=== PATIENT | female | born 1960 | race Caucasian/White ===

== ENCOUNTER 2021-10-12 20:31 | Emergency (ER) | payer OTHER ==
[2021-10-12 20:53] VITALS: RESP 18; TEMP 97.9
[2021-10-12] MEDS ORDERED: LORazepam 2 MG/ML INJ IV STA (21:10)
[2021-10-12] MEDS ORDERED: oxyCODONE-APAP 10-325MG 1 EACH TAB PO STA (21:10)
[2021-10-12 21:43] LABS: Appearance,Urine Clear (Clear); Basophils # (A) 0.1 k/uL (0-0.2); Basophils % (A) 1 %; Bilirubin,Urine Negative (Negative); Blood,Urine Negative (Negative); Color,Urine Yellow; Eosinophils # (A) 0.1 k/uL (0-0.7); Eosinophils % (A) 1 %; Glucose,Urine (UA) Negative (Negative); HCT 41.7 % (34.0-46.0); HGB 13.3 gm/dL (11.4-16.0); Ketones,Urine Trace (Negative); Leukocyte Esterase,Urine Negative (Negative); Lymphocytes # (A) 1.5 k/uL (1.0-4.8); Lymphocytes % (A) 14 %; MCH 28.8 pg (25.0-35.0); MCV 90.1 fL (80.0-100.0); Mean Platelet Volume 9.9; Monocytes # (A) 0.6 k/uL (0-1.0); Monocytes % (A) 6 %; Neutrophils # (A) 7.9 k/uL (1.3-7.7); Neutrophils % (A) 77 %; Nitrite,Urine Negative (Negative); Platelet Count 193 k/uL (150-450); Protein,Urine Negative (Negative); RBC 4.63 m/uL (3.80-5.40); RDW 15.3 % (11.5-15.5); Specific Gravity,Urine 1.008 (1.001-1.035); Urobilinogen,Urine <2.0 mg/dL (<2.0); WBC 10.3 k/uL (3.8-10.6)
[2021-10-12 21:54] LABS: ALT 12 U/L (4-34); AST 21 U/L (14-36); African American GFR (CKD) >90 (>60 ml/min/1.73 sqM); Albumin 3.8 g/dL (3.5-5.0); Alkaline Phosphatase 86 U/L (38-126); Anion Gap 9 mmol/L; Blood Urea Nitrogen 7 mg/dL (7-17); Carbon Dioxide 19 mmol/L (22-30); Chloride 110 mmol/L (98-107); Glucose 95 mg/dL (74-99); Non-African American GFR(CKD) >90 (>60 ml/min/1.73 sqM); Potassium 3.4 mmol/L (3.5-5.1); Sodium 138 mmol/L (137-145); Total Bilirubin 0.5 mg/dL (0.2-1.3)
--- NOTE | 2021-10-12 23:04 | ED ---
Recheck HPI - General Chief Complaint: Recheck/Abnormal Lab/Rx Stated Complaint: Hypertension Time Seen by Provider: 10/12/21 20:35 Source: patient, EMS Mode of arrival: EMS Limitations: no limitations - History of Present Illness Initial Comments: 61-year-old female patient presented to the emergency department today for evaluation of elevated blood pressure. States that she often checks her blood pressure at home. States her blood pressure is usually all over the place. She takes 3 different blood pressure medications including lisinopril, hydralazine, and carvedilol. States she has been taking her blood pressure medications as directed. States today her blood pressure was over 200 systolic multiple times. States she did take metoprolol from a friend. States that her blood pressure remained high so she called ambulance to bring her in. She does report headache at this time states headaches are not unusual for her. Denies any chest pain or shortness of breath. Denies numbness, tingling, weakness to her extremities. She does note that she is out of her Percocet and Xanax due to not currently having her primary care physician. She hasn't had these pills in the last 4-5 days. - Related Data Home Medications Medication Instructions Recorded Confirmed ALPRAZolam [Xanax] 0.5 mg PO BID PRN 10/12/21 10/12/21 Albuterol Sulfate [Proair Hfa] 1 - 2 puff INHALATION RT-Q4H PRN 10/12/21 10/12/21 Atorvastatin Calcium [Lipitor] 40 mg PO HS 10/12/21 10/12/21 Carvedilol [Coreg] 12.5 mg PO BID 10/12/21 10/12/21 Mometasone/Formoterol [Dulera 200 2 puff PO RT-BID 10/12/21 10/12/21 Mcg-5 Mcg Inhaler] buPROPion [Wellbutrin] 75 mg PO DAILY 10/12/21 10/12/21 hydrALAZINE HCL 50 mg PO TID 10/12/21 10/12/21 lisinopriL [Zestril] 20 mg PO BID 10/12/21 10/12/21 oxyCODONE-APAP 10-325MG [Percocet 1 tab PO Q6H 10/12/21 10/12/21 10-325 mg] traZODone HCL [Desyrel] 100 mg PO HS 10/12/21 10/12/21 Previous Rx's Medication Instructions Recorded ALPRAZolam [Xanax] 0.5 mg PO BID PRN #6 tablet 10/12/21 oxyCODONE HCL/ACETAMINOPHEN 1 tab PO Q6HR PRN #12 tab 10/12/21 [Percocet 10-325 mg] Allergies Allergy/AdvReac Type Severity Reaction Status Date / Time No Known Allergies Allergy Verified 10/12/21 21:36 Review of Systems ROS Statement: Those systems with pertinent positive or pertinent negative responses have been documented in the HPI. ROS Other: All systems not noted in ROS Statement are negative. Past Medical History Past Medical History: Hypertension Additional Past Medical History / Comment(s): Abcess lung 2014, colitis Past Surgical History: No Surgical Hx Reported Past Psychological History: Anxiety, Depression Smoking Status: Current every day smoker Past Alcohol Use History: None Reported Past Drug Use History: None Reported General Exam Limitations: no limitations General appearance: alert, in no apparent distress, other (This is a well- developed, well-nourished adult female in no acute distress.) ENT exam: Present: normal exam, normal oropharynx, mucous membranes moist Respiratory exam: Present: normal lung sounds bilaterally. Absent: respiratory distress, wheezes, rales, rhonchi, stridor Cardiovascular Exam: Present: regular rate, normal rhythm, normal heart sounds. Absent: systolic murmur, diastolic murmur, rubs, gallop, clicks GI/Abdominal exam: Present: soft, normal bowel sounds. Absent: distended, tenderness, guarding, rebound, rigid Neurological exam: Present: alert, oriented X3, CN II-XII intact Psychiatric exam: Present: normal affect, normal mood Skin exam: Present: warm, dry, intact, normal color. Absent: rash Course Vital Signs 10/12/21 10/12/21 10/12/21 20:46 21:36 22:47 Temperature 97.9 F Pulse Rate 59 L 66 64 Respiratory 18 18 18 Rate Blood Pressure 180/84 181/81 169/59 O2 Sat by Pulse 98 98 96 Oximetry 10/12/21 23:10 Temperature 97.9 F Pulse Rate 65 Respiratory 18 Rate Blood Pressure 125/71 O2 Sat by Pulse 96 Oximetry Medical Decision Making - Medical Decision Making 61-year-old female patient presented to the emergency department today for evaluation of elevated blood pressure. Physical examination is unremarkable. She is neurologically intact with no focal deficits. Blood pressures on arrival were elevated with systolic in 180s. Labs reviewed and were unremarkable. She was given a dose of Percocet and Ativan here in the department. Repeat blood pressures were much improved. She'll be discharged home with a short prescription of each of these medications until she is able to establish with a primary care physician. She was informed that she would not be able to receive these medications here in the future. She is instructed to continue her blood pressure medications and avoid taking medications or other people. She is instructed to follow up with cardiology for further evaluation of her abnormal blood pressures. Return parameters were discussed in detail. She verbalizes understanding and agrees with this plan. My attending is Dr. Stallings. - Lab Data Result diagrams: 10/12/21 21:36 10/12/21 21:36 Lab Results 10/12/21 10/12/21 10/12/21 Range/Units 21:36 21:36 21:36 WBC 10.3 (3.8-10.6) k/uL RBC 4.63 (3.80-5.40) m/uL Hgb 13.3 (11.4-16.0) gm/dL Hct 41.7 (34.0-46.0) % MCV 90.1 (80.0-100.0) fL MCH 28.8 (25.0-35.0) pg MCHC 32.0 (31.0-37.0) g/dL RDW 15.3 (11.5-15.5) % Plt Count 193 (150-450) k/uL MPV 9.9 Neutrophils % 77 % Lymphocytes % 14 % Monocytes % 6 % Eosinophils % 1 % Basophils % 1 % Neutrophils # 7.9 H (1.3-7.7) k/uL Lymphocytes # 1.5 (1.0-4.8) k/uL Monocytes # 0.6 (0-1.0) k/uL Eosinophils # 0.1 (0-0.7) k/uL Basophils # 0.1 (0-0.2) k/uL Sodium 138 (137-145) mmol/L Potassium 3.4 L (3.5-5.1) mmol/L Chloride 110 H (98-107) mmol/L Carbon Dioxide 19 L (22-30) mmol/L Anion Gap 9 mmol/L BUN 7 (7-17) mg/dL Creatinine 0.61 (0.52-1.04) mg/dL Est GFR (CKD-EPI)AfAm >90 (>60 ml/min/1.73 sqM) Est GFR (CKD-EPI)NonAf >90 (>60 ml/min/1.73 sqM) Glucose 95 (74-99) mg/dL Calcium 9.0 (8.4-10.2) mg/dL Total Bilirubin 0.5 (0.2-1.3) mg/dL AST 21 (14-36) U/L ALT 12 (4-34) U/L Alkaline Phosphatase 86 (38-126) U/L Total Protein 7.0 (6.3-8.2) g/dL Albumin 3.8 (3.5-5.0) g/dL Urine Color Yellow Urine Appearance Clear (Clear) Urine pH 7.0 (5.0-8.0) Ur Specific [place] 1.008 (1.001-1.035) Urine Protein Negative (Negative) Urine Glucose (UA) Negative (Negative) Urine Ketones Trace H (Negative) Urine Blood Negative (Negative) Urine Nitrite Negative (Negative) Urine Bilirubin Negative (Negative) Urine Urobilinogen <2.0 (<2.0) mg/dL Ur Leukocyte Esterase Negative (Negative) Disposition Clinical Impression: Hypertension Disposition: HOME SELF-CARE Condition: Good Instructions (If sedation given, give patient instructions): Hypertension (ED) Additional Instructions: Take medication sparingly as needed for severe symptoms. Follow up with cardiology for further evaluation of your blood pressure as soon as possible. Establish with a primary care physician as soon as possible. Return for any new, worsening, or concerning symptoms. Prescriptions: oxyCODONE HCL/ACETAMINOPHEN [Percocet 10-325 mg] 1 tab PO Q6HR PRN #12 tab PRN Reason: Pain ALPRAZolam [Xanax] 0.5 mg PO BID PRN #6 tablet PRN Reason: Anxiety Is patient prescribed a controlled substance at d/c from ED?: No Referrals: None,Stated [Primary Care Provider] - 1-2 days Ac Lombardi MD [STAFF PHYSICIAN] - 1-2 days Time of Disposition: 22:57
[2021-10-12 23:16] VITALS: BP 125/71; PULSE 65
== END 2021-10-12 23:18 | disposition home or self-care (01) ==
LOC: EC 20:31
DX: I10 Essential (primary) hypertension (principal); F17.200 Nicotine dependence, unspecified, uncomplicated
CPT/HCPCS: 36415; 80053; 85025; 81003; 99284; 96374; J2060

== ENCOUNTER 2021-10-20 11:43 | Inpatient (IN) | payer MEDICAID, OTHER ==
[2021-10-20] MEDS ORDERED: LORazepam 2 MG/ML INJ IM STA (12:19)
[2021-10-20 13:00] LABS: Amphetamine Screen,Urine Not Detected (NotDetected); Barbiturate Screen,Urine Not Detected (NotDetected); Benzodiazepines Screen,Urine Detected (NotDetected); Cocaine Screen,Urine Not Detected (NotDetected); Methadone Screen, Urine Not Detected (NotDetected); Opiate Screen,Urine Not Detected (NotDetected); Oxycodone Screen, Urine Detected (NotDetected); Phencyclidine Screen,Urine Not Detected (NotDetected); Tricyclic Antidepressant,Urine Not Detected (NotDetected); Urn Cannabinoid Scrn Not Detected (NotDetected)
--- NOTE | 2021-10-20 13:03 | ED ---
Psych HPI - General Chief Complaint: Psychiatric Symptoms Stated Complaint: EPS eval Time Seen by Provider: 10/20/21 11:45 Source: patient, police, EMS, RN notes reviewed Mode of arrival: EMS Limitations: no limitations - History of Present Illness Initial Comments: 61-year-old female presents emergency Department with police and EMS for psychiatric evaluation. Patient reportedly was making suicidal ideations, triamterene into the unsafe. She states that she does not want to live anymore. Patient does not once or any other stories she states that she has talked enough and she does not want to be forthcoming with information. Patient does admit that she has hypertension which is on multiple medications but states that usually Xanax is only culture she states that she did not take her Xanax today. She had a recent ER visit for similar complaints are full workup. Patient is petition by daughter. - Related Data Home Medications Medication Instructions Recorded Confirmed Albuterol Sulfate [Proair Hfa] 1 - 2 puff INHALATION RT-Q4H PRN 10/12/21 10/20/21 Atorvastatin Calcium [Lipitor] 40 mg PO HS 10/12/21 10/20/21 Carvedilol [Coreg] 12.5 mg PO BID 10/12/21 10/20/21 Mometasone/Formoterol [Dulera 200 2 puff INHALATION RT-BID 10/12/21 10/20/21 Mcg-5 Mcg Inhaler] buPROPion [Wellbutrin] 75 mg PO DAILY 10/12/21 10/20/21 hydrALAZINE HCL 50 mg PO TID 10/12/21 10/20/21 lisinopriL [Zestril] 20 mg PO BID 10/12/21 10/20/21 traZODone HCL [Desyrel] 100 mg PO HS 10/12/21 10/20/21 Previous Rx's Medication Instructions Recorded ALPRAZolam [Xanax] 0.5 mg PO BID PRN #6 tablet 10/12/21 oxyCODONE HCL/ACETAMINOPHEN 1 tab PO Q6HR PRN #12 tab 10/12/21 [Percocet 10-325 mg] Allergies Allergy/AdvReac Type Severity Reaction Status Date / Time No Known Allergies Allergy Verified 10/20/21 13:11 Review of Systems ROS Statement: Those systems with pertinent positive or pertinent negative responses have been documented in the HPI. ROS Other: All systems not noted in ROS Statement are negative. Past Medical History Past Medical History: Hypertension Additional Past Medical History / Comment(s): Abcess lung 2014, colitis Past Surgical History: No Surgical Hx Reported Past Psychological History: Anxiety, Depression Smoking Status: Current every day smoker Past Alcohol Use History: None Reported Past Drug Use History: None Reported General Exam Limitations: no limitations Course Vital Signs 10/20/21 10/20/21 10/20/21 11:50 13:43 15:22 Temperature 98.2 F Pulse Rate 81 77 77 Respiratory 18 18 18 Rate Blood Pressure 211/94 202/79 111/62 O2 Sat by Pulse 96 95 97 Oximetry Medical Decision Making - Medical Decision Making Patient was evaluated EPS and transient psychiatric services. - Lab Data Lab Results 10/20/21 Range/Units 12:20 Urine Opiates Screen Not Detected (NotDetected) Ur Oxycodone Screen Detected H (NotDetected) Urine Methadone Screen Not Detected (NotDetected) Ur Propoxyphene Screen Not Detected (NotDetected) Ur Barbiturates Screen Not Detected (NotDetected) U Tricyclic Antidepress Not Detected (NotDetected) Ur Phencyclidine Scrn Not Detected (NotDetected) Ur Amphetamines Screen Not Detected (NotDetected) U Methamphetamines Scrn Not Detected (NotDetected) U Benzodiazepines Scrn Detected H (NotDetected) Urine Cocaine Screen Not Detected (NotDetected) U Marijuana (THC) Screen Not Detected (NotDetected) Disposition Clinical Impression: Depression, Suicidal ideation Disposition: TRANSFER TO PSYCH HOSP/UNIT
[2021-10-20] MEDS ORDERED: LORazepam 1 MG TAB PO STA (13:53)
[2021-10-20] MEDS ORDERED: cloNIDine HCL 0.2 MG TAB PO STA (13:53)
[2021-10-20] MEDS ORDERED: cloNIDine HCL 0.1 MG TAB PO STA (13:53)
[2021-10-20] MEDS ORDERED: HALOPERIDOL LACTATE 5 MG/ML 1 ML VIAL IM PRN (15:24)
[2021-10-20] MEDS ORDERED: MAG HYDROX/AL HYDROX/SIMETH 30 ML CUP PO PRN (15:24)
[2021-10-20] MEDS ORDERED: MAGNESIUM HYDROXIDE 2,400 MG/10 ML CUP PO PRN (15:24)
[2021-10-20] MEDS ORDERED: LORazepam 2 MG/ML INJ IM PRN (15:28)
[2021-10-20] MEDS ORDERED: ALBUTEROL HFA INHALER INHALATION PRN (15:45)
--- NOTE | 2021-10-20 16:33 | P.HPIM ---
History of Present Illness H&P Date: 10/20/21 61-year-old female with past medical history of hypertension history of lung abscess admitted to the hospital with acute psychosis Patient feels okay today Isn't complaining of chest pain or shortness of breath Review of systems and systems has been reviewed all negative and positive find ings as per history of present illness Constitutional: No acute distress, conversant, pleasant Eyes: Anicteric sclerae, moist conjunctiva, no lid-lag PERRLA ENMT: NC/AT Oropharynx clear, no erythema, exudates Neck: Supple, FROM, no masses, or JVD No carotid bruits No thyromegaly Lungs: Clear to auscultation Clear to percussion Normal respiratory effort, no accessory muscle use Cardiovascular: Heart regular in rate and rhythm, No murmurs, gallops, or rubs No peripheral edema Abdominal: Soft Nontender, no guarding, rebound or rigidity Abdomen moving with respiration Normoactive bowel sounds No hepatomegaly, No splenomegaly No palpable mass No abdominal wall hernia noted Skin: Normal temperature, tone, texture, turgor No induration No subcutaneous nodules No rash, lesions No ulcers Extremities: No digital cyanosis No clubbing Pedal pulses intact and symmetrical Radial pulses intact and symmetrical Normal gait and station No calf tenderness Psychiatric:Alert and oriented to person, place and time Appropriate affect Intact judgement Neuro: Muscles Strength 5/5 in all 4 extremities Sensation to light touch grossly present throughout Cranial nerves II-XII grossly intact No focal sensory deficits Acute psychosis management as per psych Hypertension History of lung abscess Past Medical History Past Medical History: Hypertension Additional Past Medical History / Comment(s): Abcess lung 2014, colitis Past Surgical History: No Surgical Hx Reported Past Psychological History: Anxiety, Depression Smoking Status: Current every day smoker Past Alcohol Use History: None Reported Past Drug Use History: None Reported Medications and Allergies Home Medications Medication Instructions Recorded Confirmed Type ALPRAZolam [Xanax] 0.5 mg PO BID PRN #6 tablet 10/12/21 10/20/21 Rx Albuterol Sulfate [Proair Hfa] 1 - 2 puff INHALATION RT-Q4H PRN 10/12/21 10/20/21 History Atorvastatin Calcium [Lipitor] 40 mg PO HS 10/12/21 10/20/21 History Carvedilol [Coreg] 12.5 mg PO BID 10/12/21 10/20/21 History Mometasone/Formoterol [Dulera 200 2 puff INHALATION RT-BID 10/12/21 10/20/21 History Mcg-5 Mcg Inhaler] buPROPion [Wellbutrin] 75 mg PO DAILY 10/12/21 10/20/21 History hydrALAZINE HCL 50 mg PO TID 10/12/21 10/20/21 History lisinopriL [Zestril] 20 mg PO BID 10/12/21 10/20/21 History oxyCODONE HCL/ACETAMINOPHEN 1 tab PO Q6HR PRN #12 tab 10/12/21 10/20/21 Rx [Percocet 10-325 mg] traZODone HCL [Desyrel] 100 mg PO HS 10/12/21 10/20/21 History Allergies Allergy/AdvReac Type Severity Reaction Status Date / Time No Known Allergies Allergy Verified 10/20/21 13:11 Physical Exam Vitals: Vital Signs Temp Pulse Resp BP Pulse Ox 10/20/21 15:22 77 18 111/62 97 10/20/21 13:43 77 18 202/79 95 10/20/21 11:50 98.2 F 81 18 211/94 96 Intake and Output 10/20/21 10/20/21 10/20/21 06:59 14:59 22:59 Other: Weight 72.575 kg Results Labs: Abnormal Lab Results - Last 24 Hours (Table) 10/20/21 Range/Units 12:20 Ur Oxycodone Screen Detected H (NotDetected) U Benzodiazepines Scrn Detected H (NotDetected)
[2021-10-20] MEDS: hydrALAZINE HCL 50 MG TAB PO SCH ×2 (16:57→20:41)
[2021-10-20] MEDS: SYMBICORT 160-4.5 MCG INHALER INHALATION SCH (20:40)
[2021-10-20] MEDS: lisinopriL 20 MG TAB PO SCH (20:41)
[2021-10-20] MEDS: ATORVASTATIN 40 MG TAB PO SCH (20:41)
[2021-10-20] MEDS: traZODone HCL 100 MG TAB PO SCH (20:41)
[2021-10-20] MEDS: carvediloL 12.5 MG TAB PO SCH (20:41)
[2021-10-20] MEDS: LORazepam 1 MG TAB PO PRN (23:35)
[2021-10-21 07:42] LABS: Basophils % (A) 0 %; Eosinophils # (A) 0.1 k/uL (0-0.7); Eosinophils % (A) 2 %; HCT 42.7 % (34.0-46.0); HGB 12.6 gm/dL (11.4-16.0); Hypochromasia Marked; Lymphocytes # (A) 1.2 k/uL (1.0-4.8); Lymphocytes % (A) 22 %; MCH 29.2 pg (25.0-35.0); MCHC 29.4 g/dL (31.0-37.0); MCV 99.3 fL (80.0-100.0); Macrocytosis Slight; Mean Platelet Volume 9.1; Monocytes # (A) 0.4 k/uL (0-1.0); Monocytes % (A) 7 %; Neutrophils # (A) 3.7 k/uL (1.3-7.7); Neutrophils % (A) 67 %; Platelet Count 151 k/uL (150-450); RDW 15.3 % (11.5-15.5); WBC 5.6 k/uL (3.8-10.6)
[2021-10-21] MEDS: hydrALAZINE HCL 50 MG TAB PO SCH ×3 (07:48→21:38)
[2021-10-21] MEDS: NICOTINE 21MG/24HR PATCH TRANSDERM SCH (07:48)
[2021-10-21] MEDS: carvediloL 12.5 MG TAB PO SCH ×2 (07:48→21:38)
[2021-10-21] MEDS: lisinopriL 20 MG TAB PO SCH ×2 (07:48→21:38)
[2021-10-21] MEDS: LORazepam 1 MG TAB PO PRN ×2 (07:49→15:47)
[2021-10-21] MEDS: SYMBICORT 160-4.5 MCG INHALER INHALATION SCH ×2 (07:51→21:35)
[2021-10-21 07:53] LABS: ALT 14 U/L (4-34); AST 29 U/L (14-36); African American GFR (CKD) >90 (>60 ml/min/1.73 sqM); Albumin 3.5 g/dL (3.5-5.0); Alkaline Phosphatase 69 U/L (38-126); Anion Gap 8 mmol/L; Blood Urea Nitrogen 12 mg/dL (7-17); Calcium 8.9 mg/dL (8.4-10.2); Carbon Dioxide 18 mmol/L (22-30); Chloride 112 mmol/L (98-107); Glucose 110 mg/dL (74-99); Non-African American GFR(CKD) >90 (>60 ml/min/1.73 sqM); Sodium 138 mmol/L (137-145); Total Bilirubin 0.6 mg/dL (0.2-1.3); Total Protein 6.6 g/dL (6.3-8.2)
[2021-10-21 08:07] LABS: Potassium 4.4 mmol/L (3.5-5.1)
[2021-10-21] MEDS ORDERED: buPROPion 75 MG TAB PO SCH (09:00)
[2021-10-21 10:57] LABS: Estimated Average Glucose UNC
[2021-10-21 11:10] LABS: Chol/HDL Ratio 3.45 Ratio; LDL Cholesterol,Calculated 73.8 mg/dL (0.0-131.0); VLDL Calculation 17.78 mg/dL (5.00-40.00)
[2021-10-21] MEDS: ACETAMINOPHEN TAB 325 MG TAB PO PRN ×2 (15:48→21:39)
--- NOTE | 2021-10-21 16:37 | P.HP ---
Psychiatric H&P - . H&P Date: 10/21/21 History & Physical: Allergies Allergy/AdvReac Type Severity Reaction Status Date / Time No Known Allergies Allergy Verified 10/20/21 18:03 Vital Signs Temp 97 F L 10/21/21 05:27 Pulse 78 10/21/21 15:45 Resp 18 10/21/21 05:27 BP 171/79 10/21/21 15:45 Pulse Ox 97 10/21/21 05:27 Intake & Output 10/20/21 10/21/21 10/21/21 18:59 06:59 18:59 Weight 70.9 kg Laboratory Last Values WBC 5.6 k/uL (3.8-10.6) 10/21/21 06:58 RBC 4.30 m/uL (3.80-5.40) 10/21/21 06:58 Hgb 12.6 gm/dL (11.4-16.0) 10/21/21 06:58 Hct 42.7 % (34.0-46.0) 10/21/21 06:58 MCV 99.3 fL (80.0-100.0) D 10/21/21 06:58 MCH 29.2 pg (25.0-35.0) 10/21/21 06:58 MCHC 29.4 g/dL (31.0-37.0) L 10/21/21 06:58 RDW 15.3 % (11.5-15.5) 10/21/21 06:58 Plt Count 151 k/uL (150-450) 10/21/21 06:58 MPV 9.1 10/21/21 06:58 Neutrophils % 67 % 10/21/21 06:58 Lymphocytes % 22 % 10/21/21 06:58 Monocytes % 7 % 10/21/21 06:58 Eosinophils % 2 % 10/21/21 06:58 Basophils % 0 % 10/21/21 06:58 Neutrophils # 3.7 k/uL (1.3-7.7) 10/21/21 06:58 Lymphocytes # 1.2 k/uL (1.0-4.8) 10/21/21 06:58 Monocytes # 0.4 k/uL (0-1.0) 10/21/21 06:58 Eosinophils # 0.1 k/uL (0-0.7) 10/21/21 06:58 Basophils # 0.0 k/uL (0-0.2) 10/21/21 06:58 Hypochromasia Marked 10/21/21 06:58 Macrocytosis Slight 10/21/21 06:58 Sodium 138 mmol/L (137-145) 10/21/21 06:58 Potassium 4.4 mmol/L (3.5-5.1) 10/21/21 06:58 Chloride 112 mmol/L (98-107) H 10/21/21 06:58 Carbon Dioxide 18 mmol/L (22-30) L 10/21/21 06:58 Anion Gap 8 mmol/L 10/21/21 06:58 BUN 12 mg/dL (7-17) 10/21/21 06:58 Creatinine 0.65 mg/dL (0.52-1.04) 10/21/21 06:58 Est GFR (CKD-EPI)AfAm >90 (>60 ml/min/1.73 sqM) 10/21/21 06:58 Est GFR (CKD-EPI)NonAf >90 (>60 ml/min/1.73 sqM) 10/21/21 06:58 Glucose 110 mg/dL (74-99) H 10/21/21 06:[address] Glu mg/dL [facility] 10/21/21 06:58 Hemoglobin A1c CANCELED % 10/21/21 06:58 Calcium 8.9 mg/dL (8.4-10.2) 10/21/21 06:58 Total Bilirubin 0.6 mg/dL (0.2-1.3) 10/21/21 06:58 AST 29 U/L (14-36) 10/21/21 06:58 ALT 14 U/L (4-34) 10/21/21 06:58 Alkaline Phosphatase 69 U/L (38-126) 10/21/21 06:58 Total Protein 6.6 g/dL (6.3-8.2) 10/21/21 06:58 Albumin 3.5 g/dL (3.5-5.0) 10/21/21 06:58 Triglycerides 88.90 mg/dL (0.00-149.00) 10/21/21 06:58 Cholesterol 129.00 mg/dL (0.00-200.00) 10/21/21 06:58 LDL Cholesterol, Calc 73.8 mg/dL (0.0-131.0) 10/21/21 06:58 VLDL Cholesterol, Calc 17.78 mg/dL (5.00-40.00) 10/21/21 06:58 HDL Cholesterol 37.40 mg/dL (40.00-60.00) L 10/21/21 06:58 Cholesterol/HDL Ratio 3.45 Ratio 10/21/21 06:58 TSH 1.730 mIU/L (0.465-4.680) 10/21/21 06:58 Urine Opiates Screen Not Detected (NotDetected) 10/20/21 12:20 Ur Oxycodone Screen Detected (NotDetected) H 10/20/21 12:20 Urine Methadone Screen Not Detected (NotDetected) 10/20/21 12:20 Ur Propoxyphene Screen Not Detected (NotDetected) 10/20/21 12:20 Ur Barbiturates Screen Not Detected (NotDetected) 10/20/21 12:20 U Tricyclic Antidepress Not Detected (NotDetected) 10/20/21 12:20 Ur Phencyclidine Scrn Not Detected (NotDetected) 10/20/21 12:20 Ur Amphetamines Screen Not Detected (NotDetected) 10/20/21 12:20 U Methamphetamines Scrn Not Detected (NotDetected) 10/20/21 12:20 U Benzodiazepines Scrn Detected (NotDetected) H 10/20/21 12:20 Urine Cocaine Screen Not Detected (NotDetected) 10/20/21 12:20 U Marijuana (THC) Screen Not Detected (NotDetected) 10/20/21 12:20 Coronavirus (PCR) Not Detected (Not Detectd) 10/20/21 18:15 10/21/21 16:09 Psychiatrc H/P She was seen at the [facility] complaining of suicidal ideation and inability cope. CHief Complaint: Feeling paranoid and suicidal HPI< With no previous psychiatric admission to [facility], she was reproted to be visiting [facility]. twice according to NIA cedillo. She presented in a crisis and felt she was off Medication sicne her PCP and psychiatrist left. On further inquiry, she may have comorbid BNZ and opiate Use disorder. she was adamant that she needs oxycodone for her chronic back pain , She has tried on various non- pharmacoogical treatment: epidural injection afor her herniation disc with no persistent benefit. She was convinced that Xanax at 1.5 -3 mg combined with Oxycodone were the best Rx despite the risk of overdose . She described her pain as localised with shooting component . with no clear neurological involvement. She reported a history of violent suicidal attempt in the past; Self-stabbling in area clsoe to jugular vein but she survived. She reported she was started on Wellbutrin 150 mg po for her depression. but her paranoid symptoms resurfaced with belief that People were following her for no good reason. She complained of "seeing things" and pressured with overall stressors. Very few social support system. She was prepared to be admitted for crisis stabilizaiotn and Rx titration Past Psychiatric history: She presented with a longstanding history of anxiety and depression : recurrent major depressive episodes and was treated in the commmunity with combiend Medications and counselling. she believed that she improved on Wellbutrin but was not yet at the therapeutic dosage range. She was at a loss after her psychiatrist left [place] for [place]. Past Medical history; Hypertension, chronic back pain due to disc herniation wiht minimal nervous entrapment. She was tried on both pharmac. and non-phar. ; her opioid misuse may hve been dismissed t a large extent by her . She combined BNZ with op;ioids for her pain control and aas not been tried on GABApentin , cymbalta past substance use history : She did not agree that she may have developed early opioid and benzodiazepine use disorder. She was familiar iwth withdrawal from BNZ and opiioids due to prescription non-refill. Psychosocial history: No much was known about her historyo. 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 She seemed to be quite absorbed in her pain control and opioid-BNZ control . MSE: She was slightly unkempt and appeared to be exhausted but remain coherent and lucid with no visible shake and tremor. No psychomotor retardation . No dyskinetic movement Affect; moderately blunted and anxious over the withdrawal and rebound anxiety. full range of affect. Thought process and content: she endorsed paranoid ideations of certain group of people who have been following her in her neighborhood Perceptual distubance: NO hallucinations. NNo suicidal ideation or homicidal ideation . Cognition : oriented in time place and people. Fair insight and judgment. No memory deficits. Diagnosis; major depressive disorder, unipolar with psychotic features; Paranoia. early Opiate use disorder and BENZO (as by urine toxicol).. Management : She fulfilled [facility] admission criteria of inpatient admission . She would be restarted on Wellbutrin with monitoring for opioid and BNZO withdrawal syndrome She would be started on clonidine 0.1 mg po tid. She would be monitored for BNZ withdrawl with rebound anxiety, rmuscle spams and twitches. 5 Resume Wellbutrin e 150 mg to 300 mg po od within 3 days She would also on Seroquel 100 mg bid GABApentin 400 mg po tid. for psychotic depression. follow patient on unit Discharge planning : [facility] for her beneftis.
[2021-10-21] MEDS: cloNIDine HCL 0.1 MG TAB PO PRN (16:58)
[2021-10-21] MEDS: PROMETHAZINE 25 MG TAB PO PRN (17:24)
[2021-10-21] MEDS: buPROPion 75 MG TAB PO SCH (21:38)
[2021-10-21] MEDS: QUEtiapine 50 MG TAB PO SCH (21:38)
[2021-10-21] MEDS: traZODone HCL 100 MG TAB PO SCH (21:38)
[2021-10-21] MEDS: ATORVASTATIN 40 MG TAB PO SCH (21:38)
[2021-10-22] MEDS: cloNIDine HCL 0.1 MG TAB PO PRN (06:43)
[2021-10-22] MEDS: hydrALAZINE HCL 50 MG TAB PO SCH ×3 (06:44→20:54)
[2021-10-22] MEDS: carvediloL 12.5 MG TAB PO SCH ×2 (06:48→20:54)
[2021-10-22] MEDS: lisinopriL 20 MG TAB PO SCH ×2 (06:48→20:54)
[2021-10-22] MEDS: QUEtiapine 50 MG TAB PO SCH ×2 (07:08→09:28)
[2021-10-22] MEDS: buPROPion 75 MG TAB PO SCH ×2 (07:09→20:54)
[2021-10-22] MEDS: LORazepam 1 MG TAB PO PRN ×3 (07:09→20:52)
[2021-10-22] MEDS: NICOTINE 21MG/24HR PATCH TRANSDERM SCH (07:10)
[2021-10-22] MEDS: SYMBICORT 160-4.5 MCG INHALER INHALATION SCH ×2 (09:27→22:49)
[2021-10-22] MEDS: ACETAMINOPHEN TAB 325 MG TAB PO PRN (16:16)
--- NOTE | 2021-10-22 17:50 | P.PN ---
Subjective Progress Note Date: 10/22/21 Principal diagnosis: Progress note She was seen today for review of her Medication. She was compliant with her Medication and talked about her restless leg syndrome relaed to Seroquel. She had an acute psychotic break after she was admitted to ICU for lung abscess from [facility] she recovered uneventfully. SHe denied any psychotic symptoms of hallucinatons but was preoccupied with her episodic hypertensive scnerarioos. She was reassured she did not have furtehr headache. She was resting at times but engaged readily with the group. She was eager to have Rx titrated: wellbutin. For her anxiety, she would be prescribed Buspar. No suicidal or homicidal ideaiton Cognition. Oriented. fair insight into her condition. Diagnosis. Atypical depressive disorder. Psychosis resolving. Management: Titrate her Rx. to optimize her response MOnitor her adherence and adverse events. Assess social support . early discharge. Objective - Vital Signs Vital signs: Vital Signs Temp 97.9 F 10/22/21 06:33 Pulse 69 10/22/21 09:28 Resp 18 10/21/21 05:27 BP 151/72 10/22/21 09:28 Pulse Ox 96 10/22/21 06:33 Intake & Output 10/21/21 10/22/21 10/22/21 18:59 06:59 18:59 Weight 72.1 kg - Labs CBC & Chem 7: 10/21/21 06:58 10/21/21 06:58
[2021-10-22] MEDS: ATORVASTATIN 40 MG TAB PO SCH (20:53)
[2021-10-22] MEDS: traZODone HCL 100 MG TAB PO SCH (20:54)
[2021-10-22] MEDS ORDERED: buPROPion 75 MG TAB PO SCH (21:00)
[2021-10-22] MEDS: PROMETHAZINE 25 MG TAB PO PRN (22:48)
[2021-10-23] MEDS: hydrALAZINE HCL 50 MG TAB PO SCH (04:48)
[2021-10-23] MEDS: carvediloL 12.5 MG TAB PO SCH (04:49)
[2021-10-23] MEDS: lisinopriL 20 MG TAB PO SCH (04:49)
[2021-10-23 04:57] VITALS: TEMP 97.2
[2021-10-23] MEDS: PROMETHAZINE 25 MG TAB PO PRN (05:32)
[2021-10-23] MEDS: ACETAMINOPHEN TAB 325 MG TAB PO PRN (05:33)
[2021-10-23] MEDS: QUEtiapine 50 MG TAB PO SCH (08:01)
[2021-10-23] MEDS: NICOTINE 21MG/24HR PATCH TRANSDERM SCH (08:01)
[2021-10-23] MEDS: SYMBICORT 160-4.5 MCG INHALER INHALATION SCH (08:01)
[2021-10-23] MEDS: buPROPion 75 MG TAB PO SCH (08:02)
[2021-10-23] MEDS: LORazepam 1 MG TAB PO PRN (09:30)
[2021-10-23 09:32] VITALS: RESP 16
[2021-10-23 12:46] VITALS: BP 160/85; PULSE 70
[2021-10-23] MEDS: cloNIDine HCL 0.1 MG TAB PO PRN (12:46)
--- NOTE | 2021-10-23 18:02 | P.DS ---
Providers Date of admission: 10/20/21 15:19 Expected date of discharge: 10/23/21 Attending physician: Zenon Sears MD Discharge summary She was seen today prior to discharge. She was assessed in detail yesterday and over the weekend. She has a ICU psychosis and appeared to be impaired by her generalized somatic pain She may have misued and even abused opioid and benzodiazepine leading to her suicidal ideaiton and depression. She was more logical and lucid in describing her distress. She has a good trusting relationship with her PCP. Howeve, she did not want to be a higher dosage of atypical antipsychotic because she had moderate severe akathisia. 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 I noted she has few positive social support . She was aware of her need to have ongoing treatment. Diagnosis: atypical psychoosis resolved. Depressive disorder. NOS . rule out cognitive impairment Rx; She deborah awadirn has best helped her; dosage increased to 150 mg po bid. low dosage of Seroquel 50 mg po bid. Opioid and BNZ use disorder ; craving is apparent; She request low dosage of ativan 0. 5 mg po bid [place] [facility] [place]ults: 10/20/21 15:24 Consult Physician Routine Consulting Provider: [facility] Consult Reason/Comments: medical management Do you want consulting provider notified?: Yes Primary care physician: Stated None Plan - Discharge Summary Discharge Rx Participant: Yes New Discharge Prescriptions: New QUEtiapine [SEROquel] 50 mg PO BID 60 Days #60 tab buPROPion [Wellbutrin] 150 mg PO BID 30 Days #120 tab hydrALAZINE HCL [Apresoline] 50 mg PO TID tab cloNIDine HCL [Catapres] 0.1 mg PO TID PRN tab PRN Reason: Opiate withdrawal carvediloL [Coreg*] 12.5 mg PO BID tab lisinopriL [Zestril] 20 mg PO BID tab Continue lisinopriL [Zestril] 20 mg PO BID hydrALAZINE HCL 50 mg PO TID Carvedilol [Coreg] 12.5 mg PO BID traZODone HCL [Desyrel] 100 mg PO HS 30 Days #30 tab Atorvastatin Calcium [Lipitor] 40 mg PO HS Discontinued Albuterol Sulfate [Proair Hfa] 1 - 2 puff INHALATION RT-Q4H PRN PRN Reason: Shortness Of Breath buPROPion [Wellbutrin] 75 mg PO DAILY Mometasone/Formoterol [Dulera 200 Mcg-5 Mcg Inhaler] 2 puff INHALATION RT-BID oxyCODONE HCL/ACETAMINOPHEN [Percocet 10-325 mg] 1 tab PO Q6HR PRN #12 tab PRN Reason: Pain ALPRAZolam [Xanax] 0.5 mg PO BID PRN #6 tablet PRN Reason: Anxiety Discharge Medication List Atorvastatin Calcium [Lipitor] 40 mg PO HS 10/12/21 [History] Carvedilol [Coreg] 12.5 mg PO BID 10/12/21 [History] hydrALAZINE HCL 50 mg PO TID 10/12/21 [History] lisinopriL [Zestril] 20 mg PO BID 10/12/21 [History] QUEtiapine [SEROquel] 50 mg PO BID 60 Days #60 tab 10/23/21 [Rx] buPROPion [Wellbutrin] 150 mg PO BID 30 Days #120 tab 10/23/21 [Rx] carvediloL [Coreg*] 12.5 mg PO BID tab 10/23/21 [Rx] cloNIDine HCL [Catapres] 0.1 mg PO TID PRN tab 10/23/21 [Rx] hydrALAZINE HCL [Apresoline] 50 mg PO TID tab 10/23/21 [Rx] lisinopriL [Zestril] 20 mg PO BID tab 10/23/21 [Rx] traZODone HCL [Desyrel] 100 mg PO HS 30 Days #30 tab 10/23/21 [Rx] Follow up Appointment(s)/Referral(s): [facility] [Outside] - 10/29/21 10:00 am (With Mirna) None,Stated [Primary Care Provider] - 1-2 days Patient Instructions/Handouts: Depression (DC), Narcotic Use Disorder (DC) Activity/Diet/Wound Care/Special Instructions: Activity and diet as tolerated. Avoid the use of street drugs and alcohol. Take all medications as prescribed. When you are in need of refills on your medications please contact your medical provider and/or outpatient psychiatrist to have this done. Please go to scheduled outpatient appointment for aftercare treatment. If symptoms return or become worse, call the crisis line at and/or go to the nearest emergency room for evaluation
== END 2021-10-23 14:21 | disposition home or self-care (01) | DRG 885 ==
LOC: EC 11:43 → 3MHU 15:19
PROVIDERS: ADMIT Psychiatry & Neurology Psychiatry; ATTEND Psychiatry & Neurology Psychiatry
DX: F23 Brief psychotic disorder (principal); R45.851 Suicidal ideations; F32.89 Other specified depressive episodes; F06.8 Other specified mental disorders due to known physiological condition; F11.10 Opioid abuse, uncomplicated; F17.200 Nicotine dependence, unspecified, uncomplicated; F60.0 Paranoid personality disorder; F41.9 Anxiety disorder, unspecified; G25.81 Restless legs syndrome; G89.29 Other chronic pain; I10 Essential (primary) hypertension; Z20.822 Contact with and (suspected) exposure to COVID-19; Z79.51 Long term (current) use of inhaled steroids; Z79.899 Other long term (current) drug therapy
CPT/HCPCS: 80053; 80061; 80306; 82075; 83036; 84443; 85025; 87635; 96372; 99285

== ENCOUNTER 2021-10-29 03:07 | Emergency (ER) | payer OTHER ==
[2021-10-29 03:18] VITALS: RESP 18; TEMP 98.2
--- NOTE | 2021-10-29 03:24 | ED ---
Psych HPI - General Chief Complaint: Psychiatric Symptoms Stated Complaint: Mental Health Time Seen by Provider: 10/29/21 03:24 Source: EMS, RN notes reviewed, old records reviewed Mode of arrival: EMS Limitations: altered mental status - History of Present Illness Initial Comments: This is a 61-year-old female poor strain. Patient's brought in by PD for psychiatric evaluation. Patient is currently delusional and psychotic. Patient's states this happens the patient was allowed seemed to come out of the blue. Patient is acutely psychotic but not homicidal or suicidal MD Complaint: altered mental status -: hour(s) Associated Psychiatric Symptoms: racing thoughts, visual hallucinations, delusions Quality: getting worse Improves With: none Worsens With: none Context: significant life stressor Associated Symptoms: denies other symptoms Treatments Prior to Arrival: placed on mental health hold - Related Data Home Medications Medication Instructions Recorded Confirmed Atorvastatin Calcium [Lipitor] 40 mg PO HS 10/12/21 10/20/21 Carvedilol [Coreg] 12.5 mg PO BID 10/12/21 10/20/21 hydrALAZINE HCL 50 mg PO TID 10/12/21 10/20/21 lisinopriL [Zestril] 20 mg PO BID 10/12/21 10/20/21 Previous Rx's Medication Instructions Recorded QUEtiapine [SEROquel] 50 mg PO BID 60 Days #60 tab 10/23/21 buPROPion [Wellbutrin] 150 mg PO BID 30 Days #120 tab 10/23/21 carvediloL [Coreg*] 12.5 mg PO BID tab 10/23/21 cloNIDine HCL [Catapres] 0.1 mg PO TID PRN tab 10/23/21 hydrALAZINE HCL [Apresoline] 50 mg PO TID tab 10/23/21 lisinopriL [Zestril] 20 mg PO BID tab 10/23/21 traZODone HCL [Desyrel] 100 mg PO HS 30 Days #30 tab 10/23/21 Allergies Allergy/AdvReac Type Severity Reaction Status Date / Time No Known Allergies Allergy Verified 10/20/21 18:03 Review of Systems ROS Statement: Those systems with pertinent positive or pertinent negative responses have been documented in the HPI. ROS Other: All systems not noted in ROS Statement are negative. Past Medical History Past Medical History: Hypertension Additional Past Medical History / Comment(s): Abcess lung 2014, colitis History of Any Multi-Drug Resistant Organisms: None Reported Past Surgical History: No Surgical Hx Reported Past Psychological History: Anxiety, Depression Smoking Status: Current every day smoker Past Alcohol Use History: None Reported Past Drug Use History: None Reported General Exam Limitations: altered mental status General appearance: alert, in no apparent distress Head exam: Present: atraumatic, normocephalic, normal inspection Eye exam: Present: normal appearance, PERRL, EOMI. Absent: scleral icterus, conjunctival injection, periorbital swelling ENT exam: Present: normal exam, mucous membranes moist Neck exam: Present: normal inspection. Absent: tenderness, meningismus, lymphadenopathy Respiratory exam: Present: normal lung sounds bilaterally. Absent: respiratory distress, wheezes, rales, rhonchi, stridor Cardiovascular Exam: Present: regular rate, normal rhythm, normal heart sounds. Absent: systolic murmur, diastolic murmur, rubs, gallop, clicks GI/Abdominal exam: Present: soft, normal bowel sounds. Absent: distended, tenderness, guarding, rebound, rigid Extremities exam: Present: normal inspection, full ROM, normal capillary refill. Absent: tenderness, pedal edema, joint swelling, calf tenderness Back exam: Present: normal inspection Neurological exam: Present: alert, oriented X3, CN II-XII intact Psychiatric exam: Present: normal affect, normal mood Skin exam: Present: warm, dry, intact, normal color. Absent: rash Course Vital Signs 10/29/21 10/29/21 10/29/21 03:11 04:19 06:07 Temperature 98.2 F Pulse Rate 86 67 72 Respiratory 18 18 18 Rate Blood Pressure 162/77 120/70 127/71 O2 Sat by Pulse 95 98 97 Oximetry - Reevaluation(s) Reevaluation #1: 10/29/21 04:12 Medical record is reviewed Reevaluation #2: 10/29/21 06:22 Patient currently awake and alert, lucid and grounded Medical Decision Making - Medical Decision Making 61 female seen and evaluated psychiatry here in the emergency department. Patient currently lucid without active delusion. Patient will come pick patient up - Lab Data Lab Results 10/29/21 Range/Units 04:20 Urine Color Yellow Urine Appearance Clear (Clear) Urine pH 6.0 (5.0-8.0) Ur Specific [place] 1.022 (1.001-1.035) Urine Protein 1+ H (Negative) Urine Glucose (UA) Negative (Negative) Urine Ketones Negative (Negative) Urine Blood Negative (Negative) Urine Nitrite Negative (Negative) Urine Bilirubin Negative (Negative) Urine Urobilinogen 4.0 (<2.0) mg/dL Ur Leukocyte Esterase Negative (Negative) Urine RBC 1 (0-5) /hpf Urine WBC 2 (0-5) /hpf Ur Squamous Epith Cells 2 (0-4) /hpf Hyaline Casts 12 H (0-2) /lpf Urine Mucus Few H (None) /hpf Urine Opiates Screen Not Detected (NotDetected) Ur Oxycodone Screen Not Detected (NotDetected) Urine Methadone Screen Not Detected (NotDetected) Ur Propoxyphene Screen Not Detected (NotDetected) Ur Barbiturates Screen Not Detected (NotDetected) U Tricyclic Antidepress Not Detected (NotDetected) Ur Phencyclidine Scrn Not Detected (NotDetected) Ur Amphetamines Screen Not Detected (NotDetected) U Methamphetamines Scrn Not Detected (NotDetected) U Benzodiazepines Scrn Detected H (NotDetected) Urine Cocaine Screen Not Detected (NotDetected) U Marijuana (THC) Screen Not Detected (NotDetected) Disposition Clinical Impression: Acute psychosis, Altered mental state Disposition: HOME SELF-CARE Condition: Good Instructions (If sedation given, give patient instructions): Altered Mental Status (ED) Is patient prescribed a controlled substance at d/c from ED?: No Referrals: None,Stated [Primary Care Provider] - 1-2 days
[2021-10-29 04:38] LABS: Appearance,Urine Clear (Clear); Bilirubin,Urine Negative (Negative); Blood,Urine Negative (Negative); Color,Urine Yellow; Glucose,Urine (UA) Negative (Negative); Hyaline Casts,Urine 12 /lpf (0-2); Ketones,Urine Negative (Negative); Leukocyte Esterase,Urine Negative (Negative); Mucus,Urine Few /hpf; Nitrite,Urine Negative (Negative); Protein,Urine 1+ (Negative); RBC,Urine 1 /hpf (0-5); Specific Gravity,Urine 1.022 (1.001-1.035); Squamous Epithelial Cell,Urine 2 /hpf (0-4); WBC,Urine 2 /hpf (0-5)
[2021-10-29 05:05] LABS: Amphetamine Screen,Urine Not Detected (NotDetected); Barbiturate Screen,Urine Not Detected (NotDetected); Benzodiazepines Screen,Urine Detected (NotDetected); Cocaine Screen,Urine Not Detected (NotDetected); Methadone Screen, Urine Not Detected (NotDetected); Opiate Screen,Urine Not Detected (NotDetected); Oxycodone Screen, Urine Not Detected (NotDetected); Phencyclidine Screen,Urine Not Detected (NotDetected); Tricyclic Antidepressant,Urine Not Detected (NotDetected); Urn Cannabinoid Scrn Not Detected (NotDetected)
[2021-10-29 06:07] VITALS: BP 127/71; PULSE 72
== END 2021-10-29 06:38 | disposition home or self-care (01) ==
LOC: EC 03:07
DX: F23 Brief psychotic disorder (principal); R41.82 Altered mental status, unspecified; I10 Essential (primary) hypertension; F17.200 Nicotine dependence, unspecified, uncomplicated
CPT/HCPCS: 80306; 81001; 82075; 99285

== ENCOUNTER 2021-10-29 08:20 | Inpatient (IN) | payer OTHER ==
[2021-10-29 08:36] LABS: Glucose,Whole Blood 109 mg/dL (75-99)
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
[2021-10-29 09:03] LABS: Basophils % (A) 0 %; Eosinophils # (A) 0.1 k/uL (0-0.7); Eosinophils % (A) 2 %; HCT 44.1 % (34.0-46.0); HGB 14.4 gm/dL (11.4-16.0); Lymphocytes # (A) 1.3 k/uL (1.0-4.8); Lymphocytes % (A) 17 %; MCH 29.7 pg (25.0-35.0); MCHC 32.6 g/dL (31.0-37.0); Mean Platelet Volume 8.6; Monocytes # (A) 0.5 k/uL (0-1.0); Monocytes % (A) 6 %; Neutrophils # (A) 5.9 k/uL (1.3-7.7); Neutrophils % (A) 73 %; Platelet Count 245 k/uL (150-450); RBC 4.85 m/uL (3.80-5.40); WBC 8.1 k/uL (3.8-10.6)
[2021-10-29] MEDS ORDERED: DIPH,PERTUS(ACELL)TETVAC-LF 0.5 ML VIAL IM ONE (09:05)
[2021-10-29 09:10] LABS: ALT 22 U/L (4-34); AST 38 U/L (14-36); Acetaminophen <10.0 ug/mL; African American GFR (CKD) >90 (>60 ml/min/1.73 sqM); Albumin 4.3 g/dL (3.5-5.0); Alcohol <10 mg/dL; Alkaline Phosphatase 115 U/L (38-126); Anion Gap 6 mmol/L; Blood Urea Nitrogen 16 mg/dL (7-17); Calcium 9.3 mg/dL (8.4-10.2); Carbon Dioxide 24 mmol/L (22-30); Chloride 107 mmol/L (98-107); Glucose 117 mg/dL (74-99); Non-African American GFR(CKD) 83 (>60 ml/min/1.73 sqM); Potassium 3.9 mmol/L (3.5-5.1); Salicylate <1.0 mg/dL; Sodium 137 mmol/L (137-145); Total Bilirubin 0.5 mg/dL (0.2-1.3); Total Protein 7.7 g/dL (6.3-8.2)
[2021-10-29] MEDS ORDERED: PROPOFOL 10 MG/ML 20 ML VIAL IV ONE (09:15)
[2021-10-29] MEDS ORDERED: IV FLUID CONTINUATION 1,000 ML IV ONE ×2 (09:15)
[2021-10-29] MEDS ORDERED: PHENYLEPHRINE-0.9% NACL SYG 1,000 MCG/10 ML SYRINGE ONE (09:15)
[2021-10-29] MEDS ORDERED: ROCURONIUM 10 MG/ML (5 ML VIAL) IV ONE (09:15)
[2021-10-29] MEDS ORDERED: fentaNYL (PF) 50 MCG/ML 2 ML AMP ONE (09:15)
[2021-10-29] MEDS ORDERED: SUCCINYLCHOLINE CHLORIDE 100 MG/5 ML SYR IV ONE (09:15)
[2021-10-29] MEDS ORDERED: LIDOCAINE 1% INJ 10MG/ML (20 ML MDV) ONE (09:15)
[2021-10-29] MEDS ORDERED: SUGAMMADEX SODIUM 500 MG/5 ML SDV IV ONE (09:15)
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
[2021-10-29] MEDS ORDERED: SODIUM CHLORIDE 0.9% 100 ML with ceFAZolin 2,000 MG IV ONE ×2 (09:39)
[2021-10-29] MEDS ORDERED: HYDROmorphone 1 MG/ML 1 ML SYRINGE IVP PRN (10:01)
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
[2021-10-29] MEDS ORDERED: NALOXONE 0.4 MG/ML 1 ML VIAL IV PRN (10:08)
[2021-10-29] MEDS ORDERED: HYDROmorphone 0.5 MG/0.5 ML SYRINGE IVP ONE ×4 (10:32→12:09)
[2021-10-29] MEDS ORDERED: KETOROLAC 15 MG/ML 1 ML VIAL IVP ONE (10:32)
[2021-10-29] MEDS ORDERED: diphenhydrAMINE 50 MG/ML 1 ML VIAL IVP ONE (10:58)
[2021-10-29] MEDS ORDERED: LACTATED RINGERS 1,000 ML IV ONE (12:15)
[2021-10-29] MEDS ORDERED: cloNIDine HCL 0.1 MG TAB PO PRN (12:34)
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
[2021-10-29] MEDS: lisinopriL 20 MG TAB PO SCH ×2 (15:23→21:19)
[2021-10-29] MEDS: carvediloL 12.5 MG TAB PO SCH ×2 (15:23→16:55)
[2021-10-29] MEDS: hydrALAZINE HCL 50 MG TAB PO SCH ×3 (15:23→21:20)
[2021-10-29] MEDS: KETOROLAC 30 MG/ML 1 ML VIAL IVP SCH ×2 (15:25→18:07)
[2021-10-29 16:06] LABS: Appearance,Urine Clear (Clear); Bilirubin,Urine Negative (Negative); Blood,Urine Negative (Negative); Color,Urine Yellow; Glucose,Urine (UA) Negative (Negative); Ketones,Urine Negative (Negative); Leukocyte Esterase,Urine Negative (Negative); Nitrite,Urine Negative (Negative); PH, Urine 6.5 (5.0-8.0); Protein,Urine Negative (Negative); Specific Gravity,Urine 1.036 (1.001-1.035); Urobilinogen,Urine <2.0 mg/dL (<2.0)
[2021-10-29 16:14] LABS: Amphetamine Screen,Urine Not Detected (NotDetected); Barbiturate Screen,Urine Not Detected (NotDetected); Benzodiazepines Screen,Urine Detected (NotDetected); Cocaine Screen,Urine Not Detected (NotDetected); Methadone Screen, Urine Not Detected (NotDetected); Opiate Screen,Urine Detected (NotDetected); Oxycodone Screen, Urine Not Detected (NotDetected); Phencyclidine Screen,Urine Not Detected (NotDetected); Tricyclic Antidepressant,Urine Not Detected (NotDetected); Urn Cannabinoid Scrn Not Detected (NotDetected)
[2021-10-29] MEDS: D5-0.45% NACL WITH KCL 20MEQ/L 1,000 ML IV SCH ×2 (18:06→21:13)
[2021-10-29] MEDS: traZODone HCL 100 MG TAB PO SCH ×2 (21:19→22:35)
[2021-10-29] MEDS: ATORVASTATIN 40 MG TAB PO SCH (21:19)
[2021-10-29] MEDS: QUEtiapine 50 MG TAB PO SCH (21:19)
[2021-10-29] MEDS: buPROPion 75 MG TAB PO SCH (21:20)
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
[2021-10-30] MEDS: KETOROLAC 30 MG/ML 1 ML VIAL IVP SCH ×4 (00:27→16:22)
[2021-10-30] MEDS: hydrALAZINE HCL 50 MG TAB PO SCH ×3 (05:37→21:24)
[2021-10-30] MEDS: D5-0.45% NACL WITH KCL 20MEQ/L 1,000 ML IV SCH ×2 (05:41→07:49)
[2021-10-30 07:23] LABS: Partial Thromboplastin Time 24.7 sec (22.0-30.0); Prothrombin Time 10.9 sec (9.0-12.0)
[2021-10-30] MEDS: lisinopriL 20 MG TAB PO SCH ×2 (07:49→21:22)
[2021-10-30] MEDS: carvediloL 12.5 MG TAB PO SCH ×2 (07:49→16:22)
[2021-10-30] MEDS: QUEtiapine 50 MG TAB PO SCH ×3 (07:49→21:26)
[2021-10-30] MEDS: buPROPion 75 MG TAB PO SCH ×2 (07:50→21:22)
[2021-10-30] MEDS ORDERED: ENOXAPARIN 40 MG/0.4 ML SYRINGE SQ SCH (09:00)
[2021-10-30 09:11] LABS: Basophils # (A) 0.01 X 10*3/uL (0.00-0.10); Basophils % (A) 0.1 %; Eosinophils # (A) 0.13 X 10*3/uL (0.04-0.35); Eosinophils % (A) 1.8 %; HCT 40.6 % (37.2-46.3); HGB 12.4 g/dL (12.0-15.0); Immature Grans, Automated 0.3 %; Lymphocytes # (A) 1.12 X 10*3/uL (0.90-5.00); Lymphocytes % (A) 15.2 %; MCH 27.8 pg (27.0-32.0); MCHC 30.5 g/dL (32.0-37.0); Mean Platelet Volume 11.7 fL (9.5-12.2); Monocytes % (A) 9.5 %; NRBC Per 100 WBC 0 /100 WBCS (0.0-0.0); Neutrophils # (A) 5.38 X 10*3/uL (1.80-7.70); Neutrophils % (A) 73.1 %; Platelet Count 210 X 10*3/uL (140-440); RBC 4.46 X 10*6/uL (4.10-5.20); RDW 15.5 % (11.5-14.5); WBC 7.36 X 10*3/uL (4.50-10.00)
[2021-10-30 09:51] LABS: African American GFR (CKD) 108.4 (60.0-200.0); Anion Gap 10.2 mmol/L (10.00-18.00); BUN/Creat Ratio 14.29 Ratio (12.00-20.00); Calcium 8.9 mg/dL (8.7-10.3); Carbon Dioxide 19.8 mmol/L (20.0-27.5); Non-African American GFR(CKD) 93.5 (60.0-200.0); Potassium 4.4 mmol/L (3.5-5.5)
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
[2021-10-30] MEDS ORDERED: NICOTINE 21MG/24HR PATCH TRANSDERM SCH (15:00)
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
[2021-10-30 19:44] VITALS: BP 148/76; RESP 16; TEMP 99.1
[2021-10-30] MEDS: traZODone HCL 100 MG TAB PO SCH (21:21)
[2021-10-30] MEDS: ATORVASTATIN 40 MG TAB PO SCH (21:21)
[2021-10-31 00:30] VITALS: PULSE 83
== END 2021-10-30 22:45 | DRG 581 ==
LOC: EC 08:20 → 5NMEDONC 10:02
PROVIDERS: ADMIT Surgery; ATTEND Surgery
PROC: 0WJF4ZZ Inspection of Abdominal Wall, Percutaneous Endoscopic Approach (ICD-10-PCS; 2021-10-29)
PROC: 0JQ80ZZ Repair Abdomen Subcutaneous Tissue and Fascia, Open Approach (ICD-10-PCS; principal; 2021-10-29 08:28)
DX: S31.119A Laceration without foreign body of abdominal wall, unspecified quadrant without penetration into peritoneal cavity, initial encounter (principal); Z20.822 Contact with and (suspected) exposure to COVID-19; N28.1 Cyst of kidney, acquired; I10 Essential (primary) hypertension; F41.9 Anxiety disorder, unspecified; F32.A Depression, unspecified; F17.210 Nicotine dependence, cigarettes, uncomplicated; X78.1XXA Intentional self-harm by knife, initial encounter; Z79.899 Other long term (current) drug therapy; Z82.3 Family history of stroke; Z82.49 Family history of ischemic heart disease and other diseases of the circulatory system; Z71.6 Tobacco abuse counseling
CPT/HCPCS: 36415; 71045; 71260; 72170; 74177; 80048; 80053; 80143; 80179; 80306; 80320; 81003; 84484; 85025; 85610; 85730; 86850; 86900; 86901; 87635; 90715; 93005; 94760; 99291

== ENCOUNTER 2021-10-30 22:12 | Inpatient (IN) | payer MEDICAID ==
[2021-10-30] MEDS ORDERED: MAGNESIUM HYDROXIDE 2,400 MG/10 ML CUP PO PRN (22:50)
[2021-10-30] MEDS ORDERED: MAG HYDROX/AL HYDROX/SIMETH 30 ML CUP PO PRN (22:50)
[2021-10-30] MEDS ORDERED: HALOPERIDOL LACTATE 5 MG/ML 1 ML VIAL IM PRN (22:52)
[2021-10-30] MEDS ORDERED: cloNIDine HCL 0.1 MG TAB PO PRN (22:53)
[2021-10-31] MEDS ORDERED: hydrOXYzine HCL 50 MG/ML 1 ML VIAL IM PRN (01:00)
[2021-10-31] MEDS: hydrALAZINE HCL 50 MG TAB PO SCH ×3 (06:49→23:59)
[2021-10-31] MEDS: carvediloL 12.5 MG TAB PO SCH ×2 (06:49→17:11)
[2021-10-31] MEDS ORDERED: QUEtiapine 50 MG TAB PO SCH (09:00)
[2021-10-31] MEDS: amLODIPine 10 MG TAB PO SCH (10:26)
[2021-10-31] MEDS: lisinopriL 20 MG TAB PO SCH ×2 (12:50→23:59)
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
[2021-10-31] MEDS ORDERED: PALIPERIDONE 3 MG TAB.ER.24 PO SCH (21:00)
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
[2021-11-01] MEDS: amLODIPine 10 MG TAB PO SCH (06:13)
[2021-11-01] MEDS: carvediloL 12.5 MG TAB PO SCH ×2 (06:13→16:59)
[2021-11-01] MEDS: lisinopriL 20 MG TAB PO SCH ×2 (09:27→21:30)
[2021-11-01] MEDS: hydrALAZINE HCL 50 MG TAB PO SCH ×3 (09:27→21:30)
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
[2021-11-01] MEDS ORDERED: PALIPERIDONE 6 MG TAB.ER.24 PO SCH (21:00)
[2021-11-01] MEDS: traZODone HCL 100 MG TAB PO SCH ×2 (21:30)
[2021-11-02] MEDS: haloperidoL 1 MG TAB PO PRN (03:42)
[2021-11-02] MEDS: hydrOXYzine pamoate 25 MG CAP PO PRN ×2 (03:44→17:23)
[2021-11-02] MEDS: amLODIPine 10 MG TAB PO SCH (08:26)
[2021-11-02] MEDS: carvediloL 12.5 MG TAB PO SCH ×2 (08:26→17:23)
[2021-11-02] MEDS: lisinopriL 20 MG TAB PO SCH ×2 (08:27→20:45)
[2021-11-02] MEDS: hydrALAZINE HCL 50 MG TAB PO SCH ×3 (08:27→20:44)
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
[2021-11-02] MEDS: ACETAMINOPHEN TAB 325 MG TAB PO PRN (20:44)
[2021-11-02] MEDS: traZODone HCL 100 MG TAB PO SCH (20:45)
[2021-11-02] MEDS: PALIPERIDONE 3 MG TAB.ER.24 PO SCH (20:45)
[2021-11-03] MEDS: hydrALAZINE HCL 50 MG TAB PO SCH ×3 (07:42→21:19)
[2021-11-03] MEDS: carvediloL 12.5 MG TAB PO SCH ×2 (07:42→18:02)
[2021-11-03] MEDS: amLODIPine 10 MG TAB PO SCH (07:42)
[2021-11-03] MEDS: hydrOXYzine pamoate 25 MG CAP PO PRN ×2 (07:42→18:05)
[2021-11-03] MEDS: lisinopriL 20 MG TAB PO SCH ×2 (07:42→21:19)
[2021-11-03] MEDS: ACETAMINOPHEN TAB 325 MG TAB PO PRN ×2 (08:54→18:05)
[2021-11-03] MEDS: haloperidoL 1 MG TAB PO PRN ×2 (09:48→18:05)
--- NOTE | 2021-11-03 13:27 | P.PN ---
Progress Note - Text Progress Note Date: 11/03/21 Interval history: Patient was seen and was directable and agreeable to speak with web content writer. Reports paranoia, but states that her anxiety, hopelessness, helplessness, and anhedonia are getting "better". At this time patient denies any suicidal or homicidal ideations intent or plan. Denies any Auditory or visual hallucinations. Patient denies any side effects from the medications and has been compliant with meds. Mental status exam: General Appearance: [Patient appears to be stated age is alert, directable, and cooperative.] Behavior: [No agitated behavior. Patient is calm and directable] Speech: Patient's speech is fluent and nonpressured. Mood/Affect: Mood is improving, affect is congruent and constricted. Suicidality/Homicidality: Patient denies having any suicidal or homicidal ideation intent or plan. Perceptions: Patient denies any auditory or visual hallucinations. Though content/process: [There is no evidence of any delusional thought content and thought process is linear and goal-directed.] Memory and concentration: AOX3, grossly intact for the purposes of this session Judgment and insight: improving mildly Assessment/Plan: Continue with current diagnosis. Patient continues to meet criteria for inpatient psychiatric admission for symptom stabilization and safety.[Patient will be maintained on current psychotropic medication regimen.] Monitor for medication compliance and for any psychotropic medication side effects. Will continue to monitor ongoing response to treatment. Encouraged participation in milieu.
[2021-11-03] MEDS: traZODone HCL 100 MG TAB PO SCH (21:19)
[2021-11-03] MEDS: PALIPERIDONE 3 MG TAB.ER.24 PO SCH (21:19)
[2021-11-04] MEDS: ACETAMINOPHEN TAB 325 MG TAB PO PRN (08:14)
[2021-11-04] MEDS: lisinopriL 20 MG TAB PO SCH ×2 (08:14→20:50)
[2021-11-04] MEDS: carvediloL 12.5 MG TAB PO SCH ×2 (08:14→16:52)
[2021-11-04] MEDS: hydrOXYzine pamoate 25 MG CAP PO PRN ×2 (08:15→18:48)
[2021-11-04] MEDS: hydrALAZINE HCL 50 MG TAB PO SCH ×3 (08:15→20:50)
[2021-11-04] MEDS: amLODIPine 10 MG TAB PO SCH (08:15)
--- NOTE | 2021-11-04 11:39 | P.PN ---
Progress Note - Text Interval history: Patient was seen in her room and was directable and agreeable to speak with web content writer. Continues to report paranoia. States that her anxiety is better. At this time patient denies any suicidal or homicidal ideations intent or plan. Denies any Auditory or visual hallucinations. Patient denies any side effects from the medications and has been compliant with meds. Mental status exam: General Appearance: [Patient appears to be stated age is alert, directable, and cooperative.] Behavior: [No agitated behavior. Patient is calm and directable] Speech: Patient's speech is fluent and nonpressured. Mood/Affect: Mood is improving, affect is congruent and fulll range Suicidality/Homicidality: Patient denies having any suicidal or homicidal ideation intent or plan. Perceptions: Patient denies any auditory or visual hallucinations. Though content/process: [There is no evidence of any delusional thought content and thought process is linear and goal-directed.] Memory and concentration: AOX3, grossly intact for the purposes of this session Judgment and insight: improving mildly Assessment/Plan: Continue with current diagnosis. Patient continues to meet criteria for inpatient psychiatric admission for symptom stabilization and safety.[Patient will be maintained on current psychotropic medication regimen.] Monitor for medication compliance and for any psychotropic medication side effects. Will continue to monitor ongoing response to treatment. Encouraged participation in milieu.
[2021-11-04] MEDS: traZODone HCL 100 MG TAB PO SCH (20:50)
[2021-11-04] MEDS: PALIPERIDONE 3 MG TAB.ER.24 PO SCH (20:50)
[2021-11-05] MEDS: hydrOXYzine pamoate 25 MG CAP PO PRN ×2 (00:39→07:30)
[2021-11-05] MEDS: ACETAMINOPHEN TAB 325 MG TAB PO PRN (05:28)
[2021-11-05] MEDS: hydrALAZINE HCL 50 MG TAB PO SCH ×3 (07:30→20:40)
[2021-11-05] MEDS: lisinopriL 20 MG TAB PO SCH ×2 (07:30→20:40)
[2021-11-05] MEDS: amLODIPine 10 MG TAB PO SCH (07:30)
[2021-11-05] MEDS: carvediloL 12.5 MG TAB PO SCH ×2 (07:30→17:47)
[2021-11-05] MEDS ORDERED: PALIPERIDONE 3 MG TAB.ER.24 PO STA (09:33)
--- NOTE | 2021-11-05 10:11 | P.PN ---
Progress Note - Text Progress Note Date: 11/05/21 Interval History: Patient was seen resting in bed and was directable and agreeable to speak with senior grant writer in the office. Patient reports that she is feeling significantly better with the Invega. She states that she feels "clearer." She is more open to discussing the events leading up this hospitalization today. She does acknowledge that she was very paranoid and fearful that something bad was going to happen. She does recognize in hindsight that her actions did not make any se nse. She is not currently endorsing any suicidal or homicidal ideation, intention, and/or plan. She is not reporting any auditory or visual hallucinations. She denies any paranoia or other delusions at this time. The patient has been adherent with her medication and is not reporting any significant side effects. She does express understanding that she has been petitioned and certified and acknowledges that this was a necessary step. She is scheduled to meet with the associate attorney today. Mental Status Exam: General Appearance: Patient appears to be stated age is alert, directable, and cooperative. Behavior: Patient is displaying normal psychomotor activity. Eye contact is appropriate. Speech: Patient's speech is spontaneous, with normal rate, tone, and volume. Mood/Affect: Mood is "feeling better. Clear." Affect appears to be constricted in range but otherwise euthymic Suicidality/Homicidality: Patient denies. Perceptions: Patient denies. Though content/process: Patient denies. Memory and concentration: Appears to be grossly intact. Judgment and insight: Improving Vital Signs Temp 97.7 F 11/05/21 05:33 Pulse 77 11/05/21 07:32 Resp 18 11/05/21 05:33 BP 131/61 11/05/21 07:32 Pulse Ox 97 11/04/21 06:54 Intake & Output 11/04/21 11/05/21 11/05/21 18:59 06:59 18:59 Weight 69.7 kg Assessment Acute psychosis Anxiety disorder, unspecified Abuse of prescription medications. Plan: -Patient continues to meet criteria for inpatient psychiatric admission for symptom stabilization and safety. The patient has been petitioned and certified. Patient is scheduled to meet with the associate attorney today. She reports that she plans to defer. -Medications: Change Invega 3 mg in the morning and 6 mg mg by mouth at bedtime for psychosis as per patient preference Continue trazodone 100 mg by mouth at bedtime for insomnia -When necessary Vistaril and Haldol for agitation/aggression. -SW on board for discharge planning. Encouraged the patient to participate in milieu.
[2021-11-05] MEDS ORDERED: PALIPERIDONE IM 234 MG/1.5 ML SYG IM STA (11:00)
[2021-11-05] MEDS: traZODone HCL 100 MG TAB PO SCH ×2 (20:40→21:20)
[2021-11-05] MEDS ORDERED: PALIPERIDONE 6 MG TAB.ER.24 PO SCH (21:00)
[2021-11-06] MEDS: ACETAMINOPHEN TAB 325 MG TAB PO PRN ×2 (05:42→12:24)
[2021-11-06 05:45] VITALS: BP 98/53; PULSE 77; RESP 18; TEMP 97
[2021-11-06] MEDS: amLODIPine 10 MG TAB PO SCH (08:37)
[2021-11-06] MEDS: carvediloL 12.5 MG TAB PO SCH (08:37)
[2021-11-06] MEDS: hydrALAZINE HCL 50 MG TAB PO SCH (08:37)
[2021-11-06] MEDS: lisinopriL 20 MG TAB PO SCH (08:37)
[2021-11-06] MEDS: hydrOXYzine pamoate 25 MG CAP PO PRN ×2 (08:38→12:24)
[2021-11-06] MEDS ORDERED: PALIPERIDONE 3 MG TAB.ER.24 PO SCH (09:00)
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
== END 2021-11-06 13:10 | disposition home or self-care (01) | DRG 885 ==
LOC: 3MHU 22:47
PROVIDERS: ADMIT Psychiatry & Neurology Psychiatry; ATTEND Psychiatry & Neurology Psychiatry
DX: F23 Brief psychotic disorder (principal); R45.851 Suicidal ideations; F32.A Depression, unspecified; S31.119A Laceration without foreign body of abdominal wall, unspecified quadrant without penetration into peritoneal cavity, initial encounter; F11.10 Opioid abuse, uncomplicated; X78.1XXA Intentional self-harm by knife, initial encounter; F13.10 Sedative, hypnotic or anxiolytic abuse, uncomplicated; F17.200 Nicotine dependence, unspecified, uncomplicated; F41.9 Anxiety disorder, unspecified; G47.00 Insomnia, unspecified; I10 Essential (primary) hypertension; Z79.899 Other long term (current) drug therapy; Z91.51 Personal history of suicidal behavior; Z71.51 Drug abuse counseling and surveillance of drug abuser

== ENCOUNTER 2022-01-29 08:36 | Emergency (ER) | payer OTHER ==
[2022-01-29] MEDS ORDERED: HYDROcodone/APAP 5-325MG 1 EACH TAB PO STA (10:12)
[2022-01-29] MEDS ORDERED: SODIUM CHLORIDE 0.9% 500 ML 500 ML IV STA (10:12)
--- NOTE | 2022-01-29 10:12 | ED ---
General Adult HPI - General Chief complaint: Weakness Stated complaint: Weakness Time Seen by Provider: 01/29/22 10:04 Source: patient, EMS, RN notes reviewed, old records reviewed Mode of arrival: EMS Limitations: no limitations - History of Present Illness Initial comments: 61-year-old female presents with 2-3 weeks of generalized weakness. Patient s tates that she is recovering from upper respiratory infection and has increasing generalized weakness. She states that she also had diarrhea. Denies any vomiting or fevers Denies any abdominal pain. She is also complaining of low back pain that is chronic which she takes oxycodone for but has not seen a primary care doctor to obtain refills. She is a pack-a-day smoker -: week(s) (3) Associated Symptoms: malaise, shortness of breath, weakness, other (diarrhea) Treatments Prior to Arrival: other (inhaler) - Related Data Home Medications Medication Instructions Recorded Confirmed Atorvastatin Calcium [Lipitor] 40 mg PO HS 10/12/21 01/29/22 Carvedilol [Coreg] 12.5 mg PO BID 10/12/21 01/29/22 Aspirin EC [Ecotrin] 325 mg PO DAILY 01/29/22 01/29/22 traZODone HCL 150 mg PO HS 01/29/22 01/29/22 Previous Rx's Medication Instructions Recorded hydrALAZINE HCL [Apresoline] 50 mg PO TID tab 10/23/21 lisinopriL [Zestril] 20 mg PO BID tab 10/23/21 Paliperidone IM [Invega Sustenna] 156 mg IM QMONTHLY #1 each 11/06/21 amLODIPine [Norvasc] 10 mg PO DAILY 30 Days tab 11/06/21 Allergies Allergy/AdvReac Type Severity Reaction Status Date / Time No Known Allergies Allergy Verified 01/29/22 12:10 Review of Systems ROS Statement: Those systems with pertinent positive or pertinent negative responses have been documented in the HPI. ROS Other: All systems not noted in ROS Statement are negative. Past Medical History Past Medical History: Hypertension Additional Past Medical History / Comment(s): Abcess lung 2014, colitis History of Any Multi-Drug Resistant Organisms: None Reported Past Surgical History: No Surgical Hx Reported Additional Past Surgical History / Comment(s): 10/29/21 exploratory laparoscopy Past Anesthesia/Blood Transfusion Reactions: No Reported Reaction Past Psychological History: Anxiety, Depression Smoking Status: Current every day smoker Past Alcohol Use History: None Reported Past Drug Use History: None Reported - Past Family History Mother Family Medical History: Congestive Heart Failure (CHF) Additional Family Medical History / Comment(s): Mother is . Father Family Medical History: CVA/TIA, Hyperlipidemia General Exam Limitations: no limitations General appearance: alert, in no apparent distress Head exam: Present: atraumatic Eye exam: Absent: scleral icterus, conjunctival injection, periorbital swelling ENT exam: Present: normal exam, normal oropharynx, mucous membranes moist Neck exam: Present: normal inspection, full ROM. Absent: tenderness, meningismus, lymphadenopathy Respiratory exam: Present: wheezes. Absent: respiratory distress, chest wall tenderness, accessory muscle use, decreased breath sounds Cardiovascular Exam: Present: regular rate. Absent: JVD GI/Abdominal exam: Present: soft, normal bowel sounds. Absent: distended, tenderness, rigid Extremities exam: Present: normal inspection, normal capillary refill. Absent: tenderness, pedal edema, calf tenderness Back exam: Present: normal inspection. Absent: tenderness, CVA tenderness (R), CVA tenderness (L), rash noted Neurological exam: Present: alert, oriented X3 Psychiatric exam: Present: normal affect, normal mood Skin exam: Present: warm, dry. Absent: cyanosis, diaphoretic, petechiae Course Vital Signs 01/29/22 01/29/22 01/29/22 08:43 10:45 11:29 Temperature 98.2 F Pulse Rate 77 77 69 Respiratory 16 14 Rate Blood Pressure 182/82 148/92 O2 Sat by Pulse 96 96 Oximetry 01/29/22 01/29/22 01/29/22 11:42 12:00 12:36 Temperature 97.8 F Pulse Rate 71 73 78 Respiratory 16 16 Rate Blood Pressure 153/77 153/77 O2 Sat by Pulse 95 Oximetry EKG Findings - EKG Results: EKG: sinus rhythm (Ventricular rate of 72, WI 0.149, QRS 0.84, QTC 0.462) Medical Decision Making - Medical Decision Making Patient has been complaining of 2-3 weeks of malaise after viral illness. She denies any fevers, no abdominal pain, no headache, no focal neurological deficits are present. Labs show hemoglobin and hematocrit are stable there is no evidence of leukocytosis. Electrolytes show mild dehydration. 2+ ketones in the urine. Patient was given 500 mL bolus. She was also given [place] for her chronic back pain. Chest x-ray shows bronchitis patient was given a DuoNeb treatment. Vital signs are stable. Her symptoms are consistent with mild dehydration. She'll be discharged home to follow up with her primary care doctor this week. Patient's questions were answered and she is agreeable to this plan of care. Case discussed with Dr. Johnston. - Lab Data Result diagrams: 01/29/22 10:46 01/29/22 10:46 Lab Results 01/29/22 01/29/22 01/29/22 Range/Units 10:46 10:46 10:46 WBC 6.1 (3.8-10.6) k/uL RBC 4.95 (3.80-5.40) m/uL Hgb 13.6 (11.4-16.0) gm/dL Hct 43.2 (34.0-46.0) % MCV 87.4 (80.0-100.0) fL MCH 27.4 (25.0-35.0) pg MCHC 31.3 (31.0-37.0) g/dL RDW 14.7 (11.5-15.5) % Plt Count 261 (150-450) k/uL MPV 10.8 Neutrophils % 70 % Lymphocytes % 21 % Monocytes % 7 % Eosinophils % 1 % Basophils % 0 % Neutrophils # 4.3 (1.3-7.7) k/uL Lymphocytes # 1.3 (1.0-4.8) k/uL Monocytes # 0.4 (0-1.0) k/uL Eosinophils # 0.0 (0-0.7) k/uL Basophils # 0.0 (0-0.2) k/uL Hypochromasia Slight PT 11.0 (9.0-12.0) sec INR 1.0 (<1.2) APTT 24.5 (22.0-30.0) sec Sodium (137-145) mmol/L Potassium (3.5-5.1) mmol/L Chloride (98-107) mmol/L Carbon Dioxide (22-30) mmol/L Anion Gap mmol/L BUN (7-17) mg/dL Creatinine (0.52-1.04) mg/dL Est GFR (CKD-EPI)AfAm (>60 ml/min/1.73 sqM) Est GFR (CKD-EPI)NonAf (>60 ml/min/1.73 sqM) Glucose (74-99) mg/dL Calcium (8.4-10.2) mg/dL Magnesium (1.6-2.3) mg/dL Total Bilirubin (0.2-1.3) mg/dL AST (14-36) U/L ALT (4-34) U/L Alkaline Phosphatase (38-126) U/L Troponin I (0.000-0.034) ng/mL Total Protein (6.3-8.2) g/dL Albumin (3.5-5.0) g/dL Urine Color Yellow Urine Appearance Cloudy H (Clear) Urine pH 6.5 (5.0-8.0) Ur Specific [place] 1.015 (1.001-1.035) Urine Protein Trace H (Negative) Urine Glucose (UA) Negative (Negative) Urine Ketones 2+ H (Negative) Urine Blood Negative (Negative) Urine Nitrite Negative (Negative) Urine Bilirubin Negative (Negative) Urine Urobilinogen 2.0 (<2.0) mg/dL Ur Leukocyte Esterase Trace H (Negative) Urine RBC 2 (0-5) /hpf Urine WBC 4 (0-5) /hpf Ur Squamous Epith Cells 5 H (0-4) /hpf Urine Bacteria Rare H (None) /hpf Hyaline Casts 1 (0-2) /lpf Urine Mucus Many H (None) /hpf 01/29/22 01/29/22 Range/Units 10:46 10:46 WBC (3.8-10.6) k/uL RBC (3.80-5.40) m/uL Hgb (11.4-16.0) gm/dL Hct (34.0-46.0) % MCV (80.0-100.0) fL MCH (25.0-35.0) pg MCHC (31.0-37.0) g/dL RDW (11.5-15.5) % Plt Count (150-450) k/uL MPV Neutrophils % % Lymphocytes % % Monocytes % % Eosinophils % % Basophils % % Neutrophils # (1.3-7.7) k/uL Lymphocytes # (1.0-4.8) k/uL Monocytes # (0-1.0) k/uL Eosinophils # (0-0.7) k/uL Basophils # (0-0.2) k/uL Hypochromasia PT (9.0-12.0) sec INR (<1.2) APTT (22.0-30.0) sec Sodium 140 (137-145) mmol/L Potassium 3.6 (3.5-5.1) mmol/L Chloride 111 H (98-107) mmol/L Carbon Dioxide 18 L (22-30) mmol/L Anion Gap 11 mmol/L BUN 8 (7-17) mg/dL Creatinine 0.66 (0.52-1.04) mg/dL Est GFR (CKD-EPI)AfAm >90 (>60 ml/min/1.73 sqM) Est GFR (CKD-EPI)NonAf >90 (>60 ml/min/1.73 sqM) Glucose 94 (74-99) mg/dL Calcium 9.0 (8.4-10.2) mg/dL Magnesium 1.8 (1.6-2.3) mg/dL Total Bilirubin 0.5 (0.2-1.3) mg/dL AST 23 (14-36) U/L ALT 11 (4-34) U/L Alkaline Phosphatase 104 (38-126) U/L Troponin I 0.013 (0.000-0.034) ng/mL Total Protein 7.1 (6.3-8.2) g/dL Albumin 3.9 (3.5-5.0) g/dL Urine Color Urine Appearance (Clear) Urine pH (5.0-8.0) Ur Specific [place] (1.001-1.035) Urine Protein (Negative) Urine Glucose (UA) (Negative) Urine Ketones (Negative) Urine Blood (Negative) Urine Nitrite (Negative) Urine Bilirubin (Negative) Urine Urobilinogen (<2.0) mg/dL Ur Leukocyte Esterase (Negative) Urine RBC (0-5) /hpf Urine WBC (0-5) /hpf Ur Squamous Epith Cells (0-4) /hpf Urine Bacteria (None) /hpf Hyaline Casts (0-2) /lpf Urine Mucus (None) /hpf Disposition Clinical Impression: Malaise and fatigue, Dehydration Disposition: HOME SELF-CARE Condition: Good Instructions (If sedation given, give patient instructions): Dehydration (ED), Weakness (ED) Additional Instructions: Increase your fluid intake. Stop smoking. Follow-up with your primary care doctor this week. Return to the emergency room with any new or concerning symptoms. Is patient prescribed a controlled substance at d/c from ED?: No Referrals: None,Stated [Primary Care Provider] - 1-2 days Time of Disposition: 12:12
--- NOTE | 2022-01-29 10:55 | XR ---
EXAMINATION TYPE: XR chest 2V DATE OF EXAM: 01/29/2022 COMPARISON: Chest x-ray 10/29/2021 HISTORY: Weakness, respiratory infection TECHNIQUE: Frontal and lateral views of the chest are obtained. FINDINGS: There is no focal air space opacity, pleural effusion, or pneumothorax seen. The cardiac silhouette size is within normal limits. There are overlying leads. Question some bronchial wall thic kening. The osseous structures are intact. Question some interstitial changes within the lungs. IMPRESSION: Correlate for bronchitis and follow-up as indicated
[2022-01-29 11:05] LABS: Basophils % (A) 0 %; Eosinophils % (A) 1 %; HCT 43.2 % (34.0-46.0); HGB 13.6 gm/dL (11.4-16.0); Hypochromasia Slight; Lymphocytes # (A) 1.3 k/uL (1.0-4.8); Lymphocytes % (A) 21 %; MCH 27.4 pg (25.0-35.0); MCHC 31.3 g/dL (31.0-37.0); MCV 87.4 fL (80.0-100.0); Mean Platelet Volume 10.8; Monocytes # (A) 0.4 k/uL (0-1.0); Monocytes % (A) 7 %; Neutrophils # (A) 4.3 k/uL (1.3-7.7); Neutrophils % (A) 70 %; Platelet Count 261 k/uL (150-450); RBC 4.95 m/uL (3.80-5.40); RDW 14.7 % (11.5-15.5); WBC 6.1 k/uL (3.8-10.6)
[2022-01-29 11:14] LABS: Partial Thromboplastin Time 24.5 sec (22.0-30.0)
[2022-01-29 11:16] LABS: ALT 11 U/L (4-34); AST 23 U/L (14-36); African American GFR (CKD) >90 (>60 ml/min/1.73 sqM); Albumin 3.9 g/dL (3.5-5.0); Alkaline Phosphatase 104 U/L (38-126); Anion Gap 11 mmol/L; Blood Urea Nitrogen 8 mg/dL (7-17); Carbon Dioxide 18 mmol/L (22-30); Chloride 111 mmol/L (98-107); Glucose 94 mg/dL (74-99); Magnesium 1.8 mg/dL (1.6-2.3); Non-African American GFR(CKD) >90 (>60 ml/min/1.73 sqM); Potassium 3.6 mmol/L (3.5-5.1); Sodium 140 mmol/L (137-145); Total Bilirubin 0.5 mg/dL (0.2-1.3); Total Protein 7.1 g/dL (6.3-8.2)
[2022-01-29] MEDS ORDERED: IPRATROPIUM-ALBUTEROL 3 ML NEB INHALATION STA (11:21)
[2022-01-29 11:28] LABS: Appearance,Urine Cloudy (Clear); Bacteria,Urine Rare /hpf; Bilirubin,Urine Negative (Negative); Blood,Urine Negative (Negative); Color,Urine Yellow; Glucose,Urine (UA) Negative (Negative); Hyaline Casts,Urine 1 /lpf (0-2); Ketones,Urine 2+ (Negative); Leukocyte Esterase,Urine Trace (Negative); Mucus,Urine Many /hpf; Nitrite,Urine Negative (Negative); PH, Urine 6.5 (5.0-8.0); Protein,Urine Trace (Negative); RBC,Urine 2 /hpf (0-5); Specific Gravity,Urine 1.015 (1.001-1.035); Squamous Epithelial Cell,Urine 5 /hpf (0-4); WBC,Urine 4 /hpf (0-5)
[2022-01-29 12:01] VITALS: BP 153/77; RESP 16
[2022-01-29 12:37] VITALS: PULSE 78; TEMP 97.8
== END 2022-01-29 12:36 | disposition home or self-care (01) ==
LOC: EC 08:36
DX: E86.0 Dehydration (principal); R53.81 Other malaise; R82.4 Acetonuria; F17.200 Nicotine dependence, unspecified, uncomplicated; I10 Essential (primary) hypertension; Z79.899 Other long term (current) drug therapy; Z79.82 Long term (current) use of aspirin
CPT/HCPCS: 36415; 71046; 80053; 81001; 83735; 84484; 85025; 85610; 85730; 93005; 94640; 96360; 99285

== ENCOUNTER 2022-02-13 13:46 | Observation (INO) | payer OTHER ==
[2022-02-13] MEDS ORDERED: SODIUM CHLORIDE 0.9% 1,000 ML IV STA (14:02)
--- NOTE | 2022-02-13 14:07 | ED ---
General Adult HPI - General Chief complaint: Weakness Stated complaint: Weakness Time Seen by Provider: 02/13/22 13:50 Source: patient, EMS, RN notes reviewed, old records reviewed Mode of arrival: EMS Limitations: physical limitation - History of Present Illness Initial comments: This is a 61-year-old female presents emergency department stating that she's becoming weaker and weaker over the last month. Patient states she was seen in emergency department recently and they did not find any reason for her weakness. Patient states it's no focal weakness GENERALIZED weakness and feels very fatigued. Patient denies any fever chills per patient denies headache patient denies any numbness or focal weakness per patient denies any chest pain difficul ty breathing or shortness of breath. Patient denies any palpitations. Patient denies abdominal pain patient denies nausea vomiting or diarrhea. Patient denies any alcohol use. Patient denies any illegal drug use. Patient states she started Invega a couple of months ago - Related Data Home Medications Medication Instructions Recorded Confirmed Atorvastatin Calcium [Lipitor] 40 mg PO HS 10/12/21 02/13/22 Carvedilol [Coreg] 12.5 mg PO BID 10/12/21 02/13/22 traZODone HCL 150 mg PO HS 01/29/22 02/13/22 Mometasone/Formoterol [Dulera 200 2 puff PO RT-BID PRN 02/13/22 02/13/22 Mcg-5 Mcg Inhaler] amLODIPine [Norvasc] 10 mg PO DAILY PRN 02/13/22 02/13/22 Previous Rx's Medication Instructions Recorded hydrALAZINE HCL [Apresoline] 50 mg PO TID tab 10/23/21 lisinopriL [Zestril] 20 mg PO BID tab 10/23/21 Paliperidone IM [Invega Sustenna] 156 mg IM QMONTHLY #1 each 11/06/21 Allergies Allergy/AdvReac Type Severity Reaction Status Date / Time No Known Allergies Allergy Verified 02/13/22 13:55 Review of Systems ROS Statement: Those systems with pertinent positive or pertinent negative responses have been documented in the HPI. ROS Other: All systems not noted in ROS Statement are negative. Past Medical History Past Medical History: Hypertension Additional Past Medical History / Comment(s): Abcess lung 2014, colitis History of Any Multi-Drug Resistant Organisms: None Reported Past Surgical History: No Surgical Hx Reported Additional Past Surgical History / Comment(s): 10/29/21 exploratory laparoscopy Past Anesthesia/Blood Transfusion Reactions: No Reported Reaction Past Psychological History: Anxiety, Depression Smoking Status: Current every day smoker Past Alcohol Use History: None Reported Past Drug Use History: None Reported - Past Family History Mother Family Medical History: Congestive Heart Failure (CHF) Additional Family Medical History / Comment(s): Mother is . Father Family Medical History: CVA/TIA, Hyperlipidemia General Exam - General Exam Comments Initial Comments: GENERAL: Patient is well-developed and well-nourished. Patient is nontoxic and well- hydrated and is in no acute distress. Patient just appears very fatigued ENT: Neck is soft and supple. No significant lymphadenopathy is noted. Oropharynx is clear. Moist mucous membranes. Neck has full range of motion without eliciting any pain. EYES: The sclera were anicteric and conjunctiva were pink and moist. Extraocular movements were intact and pupils were equal round and reactive to light. Eyelids were unremarkable. PULMONARY: Unlabored respirations. Good breath sounds bilaterally. No audible rales rhonchi or wheezing was noted. CARDIOVASCULAR: There is a regular rate and rhythm without any murmurs gallops or rubs. ABDOMEN: Soft and nontender with normal bowel sounds. SKIN: Skin is clear with no lesions or rashes and otherwise unremarkable. NEUROLOGIC: Patient is alert and oriented x3. Cranial nerves II through XII are grossly intact. Motor and sensory are also intact. Normal speech, volume and content. Symmetrical smile. MUSCULOSKELETAL: Normal extremities with adequate strength and full range of motion. LYMPHATICS: No significant lymphadenopathy is noted PSYCHIATRIC: Normal psychiatric evaluation. Limitations: physical limitation Course Vital Signs 02/13/22 02/13/22 02/13/22 13:49 18:00 19:46 Temperature 98.2 F Pulse Rate 79 72 Respiratory 18 20 Rate Blood Pressure 166/65 197/98 142/53 O2 Sat by Pulse 96 96 Oximetry Medical Decision Making - Medical Decision Making EKG shows sinus rhythm at 76 bpm [place] interval 241 QRS 78 QT interval 429 QTC is 459. Patient's EKG shows no ST segment elevation or depression. CT brain shows no acute abnormality. I spoke with family about the possible adverse reaction to the intake area and family was uncomfortable taking the patient home. I spoke with Dr. Sears and he was in agreement that it was very likely that this could be reaction to to high doses of Invega I spoke with some physicians agreed to admit the patient admitted the patient wrote admitting orders I consulted Dr. Sears - Lab Data Result diagrams: 02/13/22 14:31 02/13/22 14:31 Lab Results 02/13/22 02/13/22 02/13/22 Range/Units 14:20 14:20 14:31 WBC 9.5 (3.8-10.6) k/uL RBC 4.50 (3.80-5.40) m/uL Hgb 12.8 (11.4-16.0) gm/dL Hct 39.5 (34.0-46.0) % MCV 87.9 (80.0-100.0) fL MCH 28.4 (25.0-35.0) pg MCHC 32.3 (31.0-37.0) g/dL RDW 15.4 (11.5-15.5) % Plt Count 196 (150-450) k/uL MPV 9.7 Neutrophils % 81 % Lymphocytes % 11 % Monocytes % 6 % Eosinophils % 1 % Basophils % 1 % Neutrophils # 7.7 (1.3-7.7) k/uL Lymphocytes # 1.1 (1.0-4.8) k/uL Monocytes # 0.5 (0-1.0) k/uL Eosinophils # 0.1 (0-0.7) k/uL Basophils # 0.1 (0-0.2) k/uL PT (9.0-12.0) sec INR (<1.2) APTT (22.0-30.0) sec Sodium (137-145) mmol/L Potassium (3.5-5.1) mmol/L Chloride (98-107) mmol/L Carbon Dioxide (22-30) mmol/L Anion Gap mmol/L BUN (7-17) mg/dL Creatinine (0.52-1.04) mg/dL Est GFR (CKD-EPI)AfAm (>60 ml/min/1.73 sqM) Est GFR (CKD-EPI)NonAf (>60 ml/min/1.73 sqM) Glucose (74-99) mg/dL Plasma Lactic Acid [place] (0.7-2.0) mmol/L Calcium (8.4-10.2) mg/dL Magnesium (1.6-2.3) mg/dL Total Bilirubin (0.2-1.3) mg/dL AST (14-36) U/L ALT (4-34) U/L Alkaline Phosphatase (38-126) U/L Troponin I (0.000-0.034) ng/mL Total Protein (6.3-8.2) g/dL Albumin (3.5-5.0) g/dL TSH (0.465-4.680) mIU/L Urine Color Yellow Urine Appearance Cloudy H (Clear) Urine pH 7.0 (5.0-8.0) Ur Specific [place] 1.016 (1.001-1.035) Urine Protein Trace H (Negative) Urine Glucose (UA) Negative (Negative) Urine Ketones 2+ H (Negative) Urine Blood Negative (Negative) Urine Nitrite Negative (Negative) Urine Bilirubin Negative (Negative) Urine Urobilinogen 2.0 (<2.0) mg/dL Ur Leukocyte Esterase Large H (Negative) Urine RBC <1 (0-5) /hpf Urine WBC 4 (0-5) /hpf Ur Squamous Epith Cells 7 H (0-4) /hpf Amorphous Sediment Rare H (None) /hpf Urine Bacteria Rare H (None) /hpf Urine Mucus Rare H (None) /hpf Urine Opiates Screen Not Detected (NotDetected) Ur Oxycodone Screen Not Detected (NotDetected) Urine Methadone Screen Not Detected (NotDetected) Ur Propoxyphene Screen Not Detected (NotDetected) Ur Barbiturates Screen Not Detected (NotDetected) U Tricyclic Antidepress Not Detected (NotDetected) Ur Phencyclidine Scrn Not Detected (NotDetected) Ur Amphetamines Screen Not Detected (NotDetected) U Methamphetamines Scrn Not Detected (NotDetected) U Benzodiazepines Scrn Detected H (NotDetected) Urine Cocaine Screen Not Detected (NotDetected) U Marijuana (THC) Screen Not Detected (NotDetected) 02/13/22 02/13/22 02/13/22 Range/Units 14:31 14:31 14:31 WBC (3.8-10.6) k/uL RBC (3.80-5.40) m/uL Hgb (11.4-16.0) gm/dL Hct (34.0-46.0) % MCV (80.0-100.0) fL MCH (25.0-35.0) pg MCHC (31.0-37.0) g/dL RDW (11.5-15.5) % Plt Count (150-450) k/uL MPV Neutrophils % % Lymphocytes % % Monocytes % % Eosinophils % % Basophils % % Neutrophils # (1.3-7.7) k/uL Lymphocytes # (1.0-4.8) k/uL Monocytes # (0-1.0) k/uL Eosinophils # (0-0.7) k/uL Basophils # (0-0.2) k/uL PT 10.9 (9.0-12.0) sec INR 1.0 (<1.2) APTT 24.1 (22.0-30.0) sec Sodium 140 (137-145) mmol/L Potassium 3.8 (3.5-5.1) mmol/L Chloride 111 H (98-107) mmol/L Carbon Dioxide 21 L (22-30) mmol/L Anion Gap 8 mmol/L BUN 11 (7-17) mg/dL Creatinine 0.64 (0.52-1.04) mg/dL Est GFR (CKD-EPI)AfAm >90 (>60 ml/min/1.73 sqM) Est GFR (CKD-EPI)NonAf >90 (>60 ml/min/1.73 sqM) Glucose 86 (74-99) mg/dL Plasma Lactic Acid [place] 0.7 (0.7-2.0) mmol/L Calcium 8.8 (8.4-10.2) mg/dL Magnesium 1.9 (1.6-2.3) mg/dL Total Bilirubin 0.4 (0.2-1.3) mg/dL AST 22 (14-36) U/L ALT 13 (4-34) U/L Alkaline Phosphatase 87 (38-126) U/L Troponin I (0.000-0.034) ng/mL Total Protein 6.2 L (6.3-8.2) g/dL Albumin 3.4 L (3.5-5.0) g/dL TSH 1.990 (0.465-4.680) mIU/L Urine Color Urine Appearance (Clear) Urine pH (5.0-8.0) Ur Specific [place] (1.001-1.035) Urine Protein (Negative) Urine Glucose (UA) (Negative) Urine Ketones (Negative) Urine Blood (Negative) Urine Nitrite (Negative) Urine Bilirubin (Negative) Urine Urobilinogen (<2.0) mg/dL Ur Leukocyte Esterase (Negative) Urine RBC (0-5) /hpf Urine WBC (0-5) /hpf Ur Squamous Epith Cells (0-4) /hpf Amorphous Sediment (None) /hpf Urine Bacteria (None) /hpf Urine Mucus (None) /hpf Urine Opiates Screen (NotDetected) Ur Oxycodone Screen (NotDetected) Urine Methadone Screen (NotDetected) Ur Propoxyphene Screen (NotDetected) Ur Barbiturates Screen (NotDetected) U Tricyclic Antidepress (NotDetected) Ur Phencyclidine Scrn (NotDetected) Ur Amphetamines Screen (NotDetected) U Methamphetamines Scrn (NotDetected) U Benzodiazepines Scrn (NotDetected) Urine Cocaine Screen (NotDetected) U Marijuana (THC) Screen (NotDetected) 02/13/22 Range/Units 14:31 WBC (3.8-10.6) k/uL RBC (3.80-5.40) m/uL Hgb (11.4-16.0) gm/dL Hct (34.0-46.0) % MCV (80.0-100.0) fL MCH (25.0-35.0) pg MCHC (31.0-37.0) g/dL RDW (11.5-15.5) % Plt Count (150-450) k/uL MPV Neutrophils % % Lymphocytes % % Monocytes % % Eosinophils % % Basophils % % Neutrophils # (1.3-7.7) k/uL Lymphocytes # (1.0-4.8) k/uL Monocytes # (0-1.0) k/uL Eosinophils # (0-0.7) k/uL Basophils # (0-0.2) k/uL PT (9.0-12.0) sec INR (<1.2) APTT (22.0-30.0) sec Sodium (137-145) mmol/L Potassium (3.5-5.1) mmol/L Chloride (98-107) mmol/L Carbon Dioxide (22-30) mmol/L Anion Gap mmol/L BUN (7-17) mg/dL Creatinine (0.52-1.04) mg/dL Est GFR (CKD-EPI)AfAm (>60 ml/min/1.73 sqM) Est GFR (CKD-EPI)NonAf (>60 ml/min/1.73 sqM) Glucose (74-99) mg/dL Plasma Lactic Acid [place] (0.7-2.0) mmol/L Calcium (8.4-10.2) mg/dL Magnesium (1.6-2.3) mg/dL Total Bilirubin (0.2-1.3) mg/dL AST (14-36) U/L ALT (4-34) U/L Alkaline Phosphatase (38-126) U/L Troponin I <0.012 (0.000-0.034) ng/mL Total Protein (6.3-8.2) g/dL Albumin (3.5-5.0) g/dL TSH (0.465-4.680) mIU/L Urine Color Urine Appearance (Clear) Urine pH (5.0-8.0) Ur Specific [place] (1.001-1.035) Urine Protein (Negative) Urine Glucose (UA) (Negative) Urine Ketones (Negative) Urine Blood (Negative) Urine Nitrite (Negative) Urine Bilirubin (Negative) Urine Urobilinogen (<2.0) mg/dL Ur Leukocyte Esterase (Negative) Urine RBC (0-5) /hpf Urine WBC (0-5) /hpf Ur Squamous Epith Cells (0-4) /hpf Amorphous Sediment (None) /hpf Urine Bacteria (None) /hpf Urine Mucus (None) /hpf Urine Opiates Screen (NotDetected) Ur Oxycodone Screen (NotDetected) Urine Methadone Screen (NotDetected) Ur Propoxyphene Screen (NotDetected) Ur Barbiturates Screen (NotDetected) U Tricyclic Antidepress (NotDetected) Ur Phencyclidine Scrn (NotDetected) Ur Amphetamines Screen (NotDetected) U Methamphetamines Scrn (NotDetected) U Benzodiazepines Scrn (NotDetected) Urine Cocaine Screen (NotDetected) U Marijuana (THC) Screen (NotDetected) Disposition Clinical Impression: Generalized weakness, Fatigue, Adverse effects of medication Disposition: ADMITTED IP TO THIS HOSP Referrals: None,Stated [Primary Care Provider] - 1-2 days Time of Disposition: 19:51
[2022-02-13 14:48] LABS: ALT 13 U/L (4-34); AST 22 U/L (14-36); African American GFR (CKD) >90 (>60 ml/min/1.73 sqM); Albumin 3.4 g/dL (3.5-5.0); Alkaline Phosphatase 87 U/L (38-126); Anion Gap 8 mmol/L; Blood Urea Nitrogen 11 mg/dL (7-17); Calcium 8.8 mg/dL (8.4-10.2); Carbon Dioxide 21 mmol/L (22-30); Chloride 111 mmol/L (98-107); Glucose 86 mg/dL (74-99); Magnesium 1.9 mg/dL (1.6-2.3); Non-African American GFR(CKD) >90 (>60 ml/min/1.73 sqM); Potassium 3.8 mmol/L (3.5-5.1); Sodium 140 mmol/L (137-145); Total Bilirubin 0.4 mg/dL (0.2-1.3); Total Protein 6.2 g/dL (6.3-8.2)
[2022-02-13 14:49] LABS: Amorphous Sediment,Urine Rare /hpf; Appearance,Urine Cloudy (Clear); Bacteria,Urine Rare /hpf; Bilirubin,Urine Negative (Negative); Blood,Urine Negative (Negative); Color,Urine Yellow; Glucose,Urine (UA) Negative (Negative); Ketones,Urine 2+ (Negative); Leukocyte Esterase,Urine Large (Negative); Mucus,Urine Rare /hpf; Nitrite,Urine Negative (Negative); Protein,Urine Trace (Negative); RBC,Urine <1 /hpf (0-5); Specific Gravity,Urine 1.016 (1.001-1.035); Squamous Epithelial Cell,Urine 7 /hpf (0-4); WBC,Urine 4 /hpf (0-5)
[2022-02-13 14:56] LABS: Basophils # (A) 0.1 k/uL (0-0.2); Basophils % (A) 1 %; Eosinophils # (A) 0.1 k/uL (0-0.7); Eosinophils % (A) 1 %; HCT 39.5 % (34.0-46.0); HGB 12.8 gm/dL (11.4-16.0); Lymphocytes # (A) 1.1 k/uL (1.0-4.8); Lymphocytes % (A) 11 %; MCH 28.4 pg (25.0-35.0); MCHC 32.3 g/dL (31.0-37.0); MCV 87.9 fL (80.0-100.0); Mean Platelet Volume 9.7; Monocytes # (A) 0.5 k/uL (0-1.0); Monocytes % (A) 6 %; Neutrophils # (A) 7.7 k/uL (1.3-7.7); Neutrophils % (A) 81 %; Platelet Count 196 k/uL (150-450); RDW 15.4 % (11.5-15.5); WBC 9.5 k/uL (3.8-10.6)
[2022-02-13 15:01] LABS: Partial Thromboplastin Time 24.1 sec (22.0-30.0); Prothrombin Time 10.9 sec (9.0-12.0)
--- NOTE | 2022-02-13 15:38 | XR ---
EXAMINATION TYPE: XR chest 2V DATE OF EXAM: 02/13/2022 COMPARISON: Chest x-ray 01/29/2022 HISTORY: Weakness TECHNIQUE: Frontal and lateral views of the chest are obtained. FINDINGS: There is no focal air space opacity, pleural effusion, or pneumothorax seen. The cardiac silhouette size is within normal limits. The osseous structures are intact, there is thoracic spond ylosis. There is some prominence of interstitium. IMPRESSION: There is some interstitial lung disease change.
[2022-02-13 16:28] LABS: Amphetamine Screen,Urine Not Detected (NotDetected); Barbiturate Screen,Urine Not Detected (NotDetected); Benzodiazepines Screen,Urine Detected (NotDetected); Cocaine Screen,Urine Not Detected (NotDetected); Methadone Screen, Urine Not Detected (NotDetected); Opiate Screen,Urine Not Detected (NotDetected); Oxycodone Screen, Urine Not Detected (NotDetected); Phencyclidine Screen,Urine Not Detected (NotDetected); Tricyclic Antidepressant,Urine Not Detected (NotDetected); Urn Cannabinoid Scrn Not Detected (NotDetected)
[2022-02-13] MEDS ORDERED: LABETALOL 5 MG/ML VIAL MDV IVP STA (17:49)
[2022-02-13] MEDS ORDERED: SODIUM CHLORIDE 0.9% 1,000 ML IV ONE (19:52)
[2022-02-13] MEDS ORDERED: NALOXONE 0.4 MG/ML 1 ML VIAL IV PRN (20:23)
[2022-02-13] MEDS ORDERED: amLODIPine 10 MG TAB PO PRN (20:26)
[2022-02-13] MEDS ORDERED: SYMBICORT 160-4.5 MCG INHALER INHALATION PRN (20:26)
--- NOTE | 2022-02-13 20:28 | CT ---
EXAMINATION TYPE: CT brain wo con CT DLP: 1129.4 mGycm, Automated exposure control for dose reduction was used. DATE OF EXAM: 02/13/2022 7:40 PM COMPARISON: None. CLINICAL INDICATION:Female, 61 years old with history of Altered mental status, AMS, weakness TECHNIQUE: Brain: Multiple axial CT images of the brain were obtained without IV contrast. FINDINGS: Brain: Extra-axial spaces: No abnormal extra-axial fluid collections. Ventricular system: Within normal limits Cerebral parenchyma: No acute intraparenchymal hemorrhage or mass effect. The ryan-white junction is well differentiated. Cerebellum: Unremarkable. Mass effect: No evidence of midline shift. Intracranial vasculature: Atherosclerotic calcifications of the intracranial vessels. Soft tissues: Normal. Calvarium/osseous structures: No depressed skull fracture. Paranasal sinuses and mastoid air cells: Mild scattered paranasal sinus disease. Visualized orbits: Orbital contents are intact. IMPRESSION: No acute intracranial process.
--- NOTE | 2022-02-13 20:43 | P.HPIM ---
History of Present Illness H&P Date: 02/13/22 Chief Complaint: Progressive weakness Patient is a 61-year-old female. She has a past medical history of hypertension, dyslipidemia, anxiety depression. Patient presents to the hospital with generalized complaints of increase weakness and inability to perform ADLs over the past 1 month. Patient states that her weakness has progressed to the point where she is having difficulty getting out of bed and she feels that she has no strength in her legs. Patient 1 month prior was doing well and was independent and she states that she was able to perform all her AD Ls without difficulties. Patient does have some chronic back pain however denies any others worsening pain in her back. She denies any numbness or tingling she denies any urinary or stool incontinence. She denies any unilateral weakness. She denies fevers or chills no shortness of breath no ches t pain no nausea or vomiting or diarrhea. Patient has no prior history of being diagnosed with any neuromuscular disorders. She reports her only acute change of medication was being started invega few months ago. Review of Systems A full complete 12 point review of system was performed pertinent negatives and positives noted in the HPI All systems: negative Past Medical History Past Medical History: Hyperlipidemia, Hypertension Additional Past Medical History / Comment(s): Abcess lung 2014, colitis History of Any Multi-Drug Resistant Organisms: None Reported Past Surgical History: No Surgical Hx Reported Additional Past Surgical History / Comment(s): 10/29/21 exploratory laparoscopy Past Anesthesia/Blood Transfusion Reactions: No Reported Reaction Past Psychological History: Anxiety, Depression Smoking Status: Current every day smoker Past Alcohol Use History: None Reported Past Drug Use History: None Reported - Past Family History Mother Family Medical History: Congestive Heart Failure (CHF) Additional Family Medical History / Comment(s): Mother is . Father Family Medical History: CVA/TIA, Hyperlipidemia Medications and Allergies Home Medications Medication Instructions Recorded Confirmed Type Atorvastatin Calcium [Lipitor] 40 mg PO HS 10/12/21 02/13/22 History Carvedilol [Coreg] 12.5 mg PO BID 10/12/21 02/13/22 History hydrALAZINE HCL [Apresoline] 50 mg PO TID tab 10/23/21 02/13/22 Rx lisinopriL [Zestril] 20 mg PO BID tab 10/23/21 02/13/22 Rx Paliperidone IM [Invega Sustenna] 156 mg IM QMONTHLY #1 each 11/06/21 02/13/22 Rx traZODone HCL 150 mg PO HS 01/29/22 02/13/22 History Mometasone/Formoterol [Dulera 200 2 puff PO RT-BID PRN 02/13/22 02/13/22 History Mcg-5 Mcg Inhaler] amLODIPine [Norvasc] 10 mg PO DAILY PRN 02/13/22 02/13/22 History Allergies Allergy/AdvReac Type Severity Reaction Status Date / Time No Known Allergies Allergy Verified 02/13/22 13:55 Physical Exam Osteopathic Statement: *. No significant issues noted on an osteopathic structural exam other than those noted in the History and Physical/Consult. Vitals: Vital Signs Temp Pulse Resp BP Pulse Ox 02/13/22 19:46 72 20 142/53 96 02/13/22 18:00 197/98 02/13/22 13:49 98.2 F 79 18 166/65 96 Intake and Output 02/13/22 02/13/22 02/13/22 06:59 14:59 22:59 Other: Weight 68.039 kg - Constitutional General appearance: average body habitus, cooperative, no acute distress - EENT Eyes: EOMI, PERRLA ENT: normal oropharynx Ears: bilateral: normal, negative: erythema - Neck Neck: normal ROM - Respiratory Respiratory: bilateral: CTA - Cardiovascular Rhythm: regular Heart sounds: normal: S1, S2 - Gastrointestinal General gastrointestinal: normal bowel sounds, soft - Neurologic Neurologic: CNII-XII intact - Musculoskeletal Musculoskeletal: generalized weakness Results CBC & Chem 7: 02/13/22 14:31 02/13/22 14:31 Labs: Abnormal Lab Results - Last 24 Hours (Table) 02/13/22 02/13/22 02/13/22 Range/Units 14:20 14:20 14:31 Chloride 111 H (98-107) mmol/L Carbon Dioxide 21 L (22-30) mmol/L Total Protein 6.2 L (6.3-8.2) g/dL Albumin 3.4 L (3.5-5.0) g/dL Urine Appearance Cloudy H (Clear) Urine Protein Trace H (Negative) Urine Ketones 2+ H (Negative) Ur Leukocyte Esterase Large H (Negative) Ur Squamous Epith Cells 7 H (0-4) /hpf Amorphous Sediment Rare H (None) /hpf Urine Bacteria Rare H (None) /hpf Urine Mucus Rare H (None) /hpf U Benzodiazepines Scrn Detected H (NotDetected) Assessment and Plan (1) Generalized weakness Current Visit: Yes Status: Acute Code(s): R53.1 - WEAKNESS SNOMED Code(s): 80945435 Plan: Subacute Generalized weakness -Patient reports progressive generalized weakness for the past 1 month to the point of where she is unable to perform her ADLs. -Brain CT was performed which did not reveal any acute process -No signs of acute infection -Possibly side effect to psychiatric medication Invega. -Psychiatric team consult will be placed, neurology consultation, PTOT consult -Patient admitted to observation floor Hypertension -Patient is on multiple medications for blood pressure control. We'll continue with home medications including hydralazine, amlodipine, carvedilol, lisinopril Depression/anxiety -Patient's mood is currently stable without any suicidal ideations. At this time we are holding her medications Invega as well as trazodone. We'll await recommendations from psychiatric team regarding further medication adjustments CODE STATUS: Full code Diet: Regular DVT prophylaxis: Lovenox
[2022-02-13] MEDS: ATORVASTATIN 40 MG TAB PO SCH (22:16)
[2022-02-13] MEDS: lisinopriL 20 MG TAB PO SCH (22:16)
[2022-02-13] MEDS: hydrALAZINE HCL 50 MG TAB PO SCH (22:24)
[2022-02-14] MEDS: carvediloL 12.5 MG TAB PO SCH ×2 (06:59→17:45)
[2022-02-14] MEDS: hydrALAZINE HCL 50 MG TAB PO SCH ×3 (08:02→20:53)
[2022-02-14] MEDS: ENOXAPARIN 40 MG/0.4 ML SYRINGE SQ SCH (08:02)
[2022-02-14] MEDS: lisinopriL 20 MG TAB PO SCH ×2 (08:02→20:53)
[2022-02-14 09:39] LABS: African American GFR (CKD) 111.5 (60.0-200.0); Albumin 3.4 g/dL (3.8-4.9); Albumin/Globulin Ratio 1.35 (1.60-3.17); Anion Gap 12.2 mmol/L (10.00-18.00); BUN/Creat Ratio 14.91 Ratio (12.00-20.00); Blood Urea Nitrogen 9.6 mg/dL (9.0-27.0); Calcium 8.5 mg/dL (8.7-10.3); Carbon Dioxide 21.4 mmol/L (20.0-27.5); Globulin 2.5 g/dL (1.6-3.3); Non-African American GFR(CKD) 96.2 (60.0-200.0); Phosphorus 3.6 mg/dL (2.4-5.1); Potassium 3.9 mmol/L (3.5-5.5); Total Bilirubin 0.4 mg/dL (0.30-1.20); Total Protein 5.9 g/dL (6.2-8.2)
[2022-02-14 10:02] LABS: Basophils # (A) 0.02 X 10*3/uL (0.00-0.10); Basophils % (A) 0.3 %; Eosinophils # (A) 0.06 X 10*3/uL (0.04-0.35); Eosinophils % (A) 0.9 %; HGB 12.2 g/dL (12.0-15.0); Immature Grans, Automated 0.3 %; Lymphocytes # (A) 1.16 X 10*3/uL (0.90-5.00); Lymphocytes % (A) 17.5 %; MCHC 31.3 g/dL (32.0-37.0); MCV 86.3 fL (80.0-97.0); Monocytes # (A) 0.65 X 10*3/uL (0.20-1.00); Monocytes % (A) 9.8 %; NRBC Per 100 WBC 0 /100 WBCS (0.0-0.0); Neutrophils # (A) 4.72 X 10*3/uL (1.80-7.70); Neutrophils % (A) 71.2 %; Platelet Count 184 X 10*3/uL (140-440); RBC 4.52 X 10*6/uL (4.10-5.20); RDW 15.7 % (11.5-14.5); WBC 6.63 X 10*3/uL (4.50-10.00)
[2022-02-14 13:10] VITALS: BMI 29.2
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
--- NOTE | 2022-02-14 18:23 | P.PN ---
Subjective Progress Note Date: 02/14/22 Hospital course: Patient is a very pleasant 61-year-old female with a past medical history of hypertension, hyperlipidemia, anxiety and depression. She presented to the emergency department secondary to reports of progressive generalized weakness and fatigue over the past month and now reports of inability to perform ADLs or care for herself. Patient underwent full evaluation in the emergency department. An EKG was done revealing normal sinus rhythm at 76 bpm with no noted T wave ST abnormalities. Chest x-ray negative for acute cardiopulmonary process, revealing signs of interstitial lung disease. CT head negative for acute intercranial process. CBC, CMP, magnesium, and TSH all normal findings. Urinalysis negative for infection. Urine drug screen positive for benzodi azepines. Patient admitted under our services with consultation to psychiatry and neurology. Physical exam: Vital signs reviewed and stable. General: Nontoxic, no distress and appears stated age. Derm: Skin warm and dry, normal coloration for ethnicity. Head: Atraumatic, normocephalic and symmetric. Eyes: EOMs intact, no lid lag, and anicteric sclera Mouth: no lip lesions, mucus membranes moist Cardiovascular: regular rate and rhythm with normal S1S2, no murmur, positive posterior tibial pulses bilaterally, and cap refill < 2 seconds. Lungs: Respirations even, regular, and unlabored on room air. Lungs CTA bilaterally, no rhonchi, no rales, no wheezing, and no accessory muscle usage. Abdominal: soft, nontender to palpation, no guarding, no appreciable organomegaly Ext: ROM intact. No gross muscle atrophy, no edema, no contractures Neuro: Speech clear, face symmetrical and CN II-XII grossly intact with no noted focal neuro deficits Psych: Alert and oriented to person, place, time, and situation. Flat and depressed affect. Assessment and Plan of Care: Generalized weakness and fatigue Inability to perform ADLs independently -CT brain negative for acute process -Psychiatry consulted -Neurology consulted -Urine drug screen was positive for benzodiazepines -PT/OT consult -Fall precautions -Symptomatic care and pain management -Consult case management for likely placement in subacute rehab upon discharge Anxiety and depression -Patient's mood appears stable however her affect is flat and depressed. She denies having any suicidal ideations. Recommend holding invega and trazodone as these can be causing patient's generalized weakness and fatigue pending further recommendations from psychiatry. Hypertension -Monitor vital signs and continue daily medication regimen with hydralazine, amlodipine, carvedilol, and lisinopril. CODE STATUS: Full code DVT prophylaxis: Lovenox Discussed with: Patient and RN Anticipated discharge date: 1-[address]: Home with home care versus shelter facility A total of 32 minutes was spent on the care of this complex patient more than 50% of the time was spent in counseling and care coordination. Objective - Vital Signs Vital signs: Vital Signs Temp 97.7 F 02/14/22 07:00 Pulse 74 02/14/22 07:00 Resp 18 02/14/22 07:00 BP 128/73 02/14/22 07:00 Pulse Ox 95 02/14/22 07:00 FiO2 Intake & Output 02/13/22 02/14/22 02/14/22 18:59 06:59 18:59 Weight 68.039 kg 68.039 kg Other: Voiding Method Bedside Commode # Voids 1 - Labs CBC & Chem 7: 02/14/22 05:59 02/14/22 05:59 Labs: Abnormal Lab Results - Last 24 Hours (Table) 02/13/22 02/13/22 02/13/22 Range/Units 14:20 14:20 14:31 MCHC (32.0-37.0) g/dL RDW (11.5-14.5) % MPV (9.5-12.2) fL Chloride 111 H (98-107) mmol/L Carbon Dioxide 21 L (22-30) mmol/L Calcium (8.7-10.3) mg/dL Total Protein 6.2 L (6.3-8.2) g/dL Albumin 3.4 L (3.5-5.0) g/dL Albumin/Globulin Ratio (1.60-3.17) g/dL Urine Appearance Cloudy H (Clear) Urine Protein Trace H (Negative) Urine Ketones 2+ H (Negative) Ur Leukocyte Esterase Large H (Negative) Ur Squamous Epith Cells 7 H (0-4) /hpf Amorphous Sediment Rare H (None) /hpf Urine Bacteria Rare H (None) /hpf Urine Mucus Rare H (None) /hpf U Benzodiazepines Scrn Detected H (NotDetected) 02/14/22 02/14/22 Range/Units 05:59 05:59 MCHC 31.3 L (32.0-37.0) g/dL RDW 15.7 H (11.5-14.5) % MPV 13.0 H (9.5-12.2) fL Chloride (98-107) mmol/L Carbon Dioxide (22-30) mmol/L Calcium 8.5 L (8.7-10.3) mg/dL Total Protein 5.9 L (6.3-8.2) g/dL Albumin 3.4 L (3.5-5.0) g/dL Albumin/Globulin Ratio 1.35 L (1.60-3.17) g/dL Urine Appearance (Clear) Urine Protein (Negative) Urine Ketones (Negative) Ur Leukocyte Esterase (Negative) Ur Squamous Epith Cells (0-4) /hpf Amorphous Sediment (None) /hpf Urine Bacteria (None) /hpf Urine Mucus (None) /hpf U Benzodiazepines Scrn (NotDetected)
[2022-02-14 18:28] LABS: Immunoglobulin M 52.3 mg/dL (40.0-280.0)
[2022-02-14] MEDS: ATORVASTATIN 40 MG TAB PO SCH (20:53)
[2022-02-14] MEDS ORDERED: MELATONIN 3 MG TABLET PO PRN (21:00)
[2022-02-14 22:53] LABS: Estimated Average Glucose UNC
[2022-02-15 02:53] VITALS: RESP 18
[2022-02-15] MEDS: ENOXAPARIN 40 MG/0.4 ML SYRINGE SQ SCH (09:05)
[2022-02-15] MEDS: carvediloL 12.5 MG TAB PO SCH (09:05)
[2022-02-15] MEDS: lisinopriL 20 MG TAB PO SCH (09:05)
[2022-02-15] MEDS: hydrALAZINE HCL 50 MG TAB PO SCH (09:05)
--- NOTE | 2022-02-15 13:55 | P.PN ---
Progress Note - Text Progress Note Date: 02/15/22 Interval History: Patient was seen today for psychiatric follow-up. Patient was seen lying in her bed today and was able to get up more and sit at the side of her bed today. She appeared to be more awake and communicating with publicity writer Luis today. She claims that she feels "about the same" and is denying any depression or anxiety today. She is not endorsing any psychotic symptoms or any delusions today. No endorsing any paranoia. She claims that she is still frustrated as to what is going on with her energy level overall. We spoke about the possibility of the medications causing this as patient recently received Invega Sustenna. We also spoke about getting patient into see Dr. Sullivan her [facility] psychiatrist within 1 week for evaluation and continued close follow-up. Patient was agreeable to continue with Prolixin at this time as this might be a better option for her. She states that she slept fairly last night. Denies any changes for appetite. At this time patient denies any suicidal or homical ideations, intent or plan. Patient denies any auditory, visual hallucinations and denies any paranoia or delusions. Patient denies any side effects from the medications and has been compliant with meds. Mental Status Exam: General Appearance: Patient appears to be less lethargic today, stated age is directable, improving hygiene and grooming. Behavior: Patient is seated without any agitated behavior. Sitting at the side of the bed. Speech: Patient's speech is fluent and nonpressured. Monotone Mood/Affect: Patient reports their mood is "the same" affect is constricted. Suicidality/Homicidality: Patient denies having any homicidal ideation intent or plan. Denies any suicidal ideations intent or plan Perceptions: Patient denies any visual hallucinations and denies any auditory hallucinations Though content/process: More goal oriented and logical today. Not endorsing any paranoia or delusions. Memory and concentration: AOX3, grossly intact for the purposes of this session Judgment and insight: Improving mildly IMPRESSIONS: Likely medication adverse effect schizoaffective disorder, depressive type Anxiety disorder, unspecified history of opioid use disorder Plan: -At this time patient DOES NOT meet criteria for inpatient psychiatric admission. -Delirium precautions recommended with patient including - avoiding use of narcotics and [employer]ATE [employer] sedatives, limit anticholinergic medications when possible, frequent re-orientation, minimize use of restraints, open window shades during the day and close them at night -Would recommend the following medication changes/additions: Continue holding off on Invega Sustenna or Risperdal due to oversedation. Patient last received dose on 02/06 of Invega Sustenna. Block Mason spoke with Dr Ku over the phone from [facility] who relays that patient is following up with Dr Sullivan who is away until friday however will try and get her in for a follow up appointment this coming week or Wilfred.continue with Prolixin by mouth 2 mg twice a day for psychosis. Melatonin 3 mg daily at bedtime when necessary for insomnia. -Communicated plan to patient's nurse -At this time psychiatry with sign off. -Please contact with any questions.
--- NOTE | 2022-02-15 14:48 | P.DS ---
Providers Date of admission: 02/13/22 19:52 Expected date of discharge: 02/15/22 Attending physician: Mayte Woodard MD Consults: 02/13/22 19:52 Consult Physician Urgent Consulting Provider: Zenon Sears Consult Reason/Comments: Adverse medication reaction Invega Do you want consulting provider notified?: Yes 02/13/22 20:27 Consult Physician Routine Consulting Provider: Khang Tracey Consult Reason/Comments: subacute progressive muscle weakness Do you want consulting provider notified?: Yes, Notify in am Primary care physician: Stated None Hospital Course: Discharge Diagnosis: Generalized weakness and fatigue, secondary to oversedation/adverse reaction from medications Invega and trazadone. These medications have been discontinued and pt started on Prolixin by psychiatry team. Pt has shown significant improvement since medication changes were made. Inability to perform ADLs independently, secondary to oversedation/adverse reaction from medication. Improved. Evaluated by PT/OT patient modified independent requiring minimal assist and ambulation with rolling walker. Patient discharged home with homecare. Anxiety and depression, Invega and trazadone have been discontinued and pt started on Prolixin by psychiatry team. Pt has shown significant improvement since medication changes were made. Patient to follow up outpatient with [facility] next week. Hypertension. Monitor vital signs and continue daily medication regimen with hydralazine, amlodipine, carvedilol, and lisinopril. Hospital Course: Patient is a very pleasant 61-year-old female with a past medical history of hypertension, hyperlipidemia, anxiety and depression. She presented to the emergency department secondary to reports of progressive generalized weakness and fatigue over the past month and now reports of inability to perform ADLs or care for herself. Patient underwent full evaluation in the emergency department. An EKG was done revealing normal sinus rhythm at 76 bpm with no noted T wave ST abnormalities. Chest x-ray negative for acute cardiopulmonary process, revealing signs of interstitial lung disease. CT head negative for acute intercranial process. CBC, CMP, magnesium, and TSH all normal findings. Urinalysis negative for infection. Urine drug screen positive for benzodiazep lucía. Patient admitted under our services with consultation to psychiatry and neurology. Vitamin B-12 1202. Folate 10.30. TSH 1.990. MENDEZ screen negative. Generalized weakness and fatigue is believed to be secondary to oversedation/adverse reaction from medications Invega and trazadone. These medications were discontinued and psychiatry was consulted for further recommendations, psychiatry agreeing with discontinuation of these medications and started pt on Prolixin. Pt monitored overnight and shown significant improvement since medication changes were made. Physical therapy stating carlos mcgrath is now modified independent ambulating well with rolling walker and denied having any dizziness/lightheadedness or any other complaints throughout PT evaluation. It was recommended patient may benefit from a subacute rehab, however patient declining stating she would prefer home with home care services as she did not want to go to a rehab facility out of the city. Patient is medically stable at this time and being discharged home with home care. Patient to follow up outpatient with PCP and [facility] psychiatry team. Physical exam: Vital signs reviewed and stable. General: Nontoxic, no distress and appears stated age. Derm: Skin warm and dry, normal coloration for ethnicity. Head: Atraumatic, normocephalic and symmetric. Eyes: EOMs intact, no lid lag, and anicteric sclera Mouth: no lip lesions, mucus membranes moist Cardiovascular: regular rate and rhythm with normal S1S2, no murmur, positive posterior tibial pulses bilaterally, and cap refill < 2 seconds. Lungs: Respirations even, regular, and unlabored on room air. Lungs CTA bilaterally, no rhonchi, no rales, no wheezing, and no accessory muscle usage. Abdominal: soft, nontender to palpation, no guarding, no appreciable organomegaly Ext: ROM intact. No gross muscle atrophy, no edema, no contractures Neuro: Speech clear, face symmetrical and CN II-XII grossly intact with no noted focal neuro deficits Psych: Alert and oriented to person, place, time, and situation. Flat affect. A total of 35 minutes of time were spent preparing this complex discharge summary. Pt was discharged on 02/15/22 at 2:28 PM. Patient Condition at Discharge: Stable Plan - Discharge Summary New Discharge Prescriptions: New fluPHENAZine [Prolixin] 2 mg PO BID 30 Days #120 tab Continue carvediloL [Coreg] 12.5 mg PO BID Atorvastatin Calcium [Lipitor] 40 mg PO HS hydrALAZINE HCL [Apresoline] 50 mg PO TID tab lisinopriL [Zestril] 20 mg PO BID tab Mometasone/Formoterol [Dulera 200 Mcg-5 Mcg Inhaler] 2 puff PO RT-BID PRN PRN Reason: Shortness Of Breath amLODIPine [Norvasc] 10 mg PO DAILY PRN PRN Reason: Blood Pressure - High Discontinued Paliperidone IM [Invega Sustenna] 156 mg IM QMONTHLY #1 each traZODone HCL 150 mg PO HS Discharge Medication List Atorvastatin Calcium [Lipitor] 40 mg PO HS 10/12/21 [History] carvediloL [Coreg] 12.5 mg PO BID 10/12/21 [History] hydrALAZINE HCL [Apresoline] 50 mg PO TID tab 10/23/21 [Rx] lisinopriL [Zestril] 20 mg PO BID tab 10/23/21 [Rx] Mometasone/Formoterol [Dulera 200 Mcg-5 Mcg Inhaler] 2 puff PO RT-BID PRN 02/13/22 [History] amLODIPine [Norvasc] 10 mg PO DAILY PRN 02/13/22 [History] fluPHENAZine [Prolixin] 2 mg PO BID 30 Days #120 tab 02/15/22 [Rx] Follow up Appointment(s)/Referral(s): Billy Sim MD [REFERRING] - 1-2 Days (This is a new patient appointment, you MUST contact your insurance and change your primary care provider. Please contact [facility] after your appointment has been kept.) [facility], [NON-STAFF] - (They will evaluate after your appointment with your Primary Care Provider. Please call them after your appointment and update them. ) Activity/Diet/Wound Care/Special Instructions: Activity: As tolerated. Take breaks as needed. Diet: Heart healthy and carb consistent diet. Avoid salts, or foods with hidden salts such as canned or boxed foods and frozen dinners. Extra salt makes your heart work harder and traps the fluid in your body for longer. Special Instructions: Take all of your medications as directed and remember to keep all of your doctor's appointments and follow-up as needed. It is important to follow-up with [facility], Dr. Sullivan next week as discussed for continued mental health management. Invega and Trazadone have been discontinued due to oversedation and adverse effects of weakness and fatigue. Thank you for allowing us to participate in your care, it was truly a pleasure having you for our patient!!! Discharge/Stand Alone Forms: Who Do I Call?, Help In The Home, Personal Molded Goods Operator
[2022-02-15 15:06] VITALS: BP 110/64; PULSE 72; TEMP 97.9
--- NOTE | 2022-02-19 22:02 | P.PN ---
Subjective Progress Note Date: 02/15/22 Patient was seen for a follow-up. Patient denies any changes in her condition. She states that she is feeling like same. She is being discharged home. Patient denies any new numbness or tingling. No problem with bowel or bladder control. Objective - Vital Signs Vital signs: Vital Signs Temp 97.9 F 02/15/22 15:00 Pulse 72 02/15/22 15:00 Resp 18 02/15/22 15:00 BP 110/64 02/15/22 15:00 Pulse Ox 95 02/15/22 15:00 FiO2 - Exam Patient's mental status, speech and language functions are normal. Cranial nerves are normal. Muscle strength testing revealed improved strength, as the strength in the upper extremity is in general 5- /5 all over. The strength in lower extremities is completely normal. Deep tendon reflexes are also symmetric, 1+ at biceps, 1+ at brachioradialis, 2 at the knees, trace to 1 at both ankles and plantars downgoing bilaterally. No clonus. No ataxia for [id number] testing. Sensations equal bilaterally. No loss of sensation distally in the arms or legs. - Labs CBC & Chem 7: 02/14/22 05:59 02/14/22 05:59 Assessment and Plan Assessment: * Progressive generalized weakness of one month duration, slightly getting worse. Patient has more recently developed paresthesias of the tips of the fingers and toes bilaterally. Examination revealed slight weakness in the distal and proximal muscles of upper and lower limbs, and slight hyporeflexia (not absent). Patient did have upper respiratory infection prior to onset of these symptoms. Rule out Guillain-Canseco syndrome. * Tobacco use Plan: * Patient's blood tests shows borderline ESR 22, hemoglobin A1c was ?canceled. Vitamin B12 1202, folic acid 10.3, methylmalonic acid 0.10. Quantitative immunoglobulins all normal. Immune fixation electrophoresis negative. * Patient's muscle strength is improved. Her reflexes are preserved. No definitive evidence of Guillain-Canseco syndrome. * Patient is being discharged home. Patient was recommended to follow up with a neurologist locally. Prescription for EMG and nerve conduction studies for right upper and right lower extremity was provided. * Neurologically clear for discharge.
== END 2022-02-15 17:02 | disposition home health service (06) ==
LOC: EC 13:46 → 6NMEDSUR 19:52
PROVIDERS: ADMIT Internal Medicine; ATTEND Internal Medicine
DX: R53.1 Weakness (principal); R53.83 Other fatigue; T43.595A Adverse effect of other antipsychotics and neuroleptics, initial encounter; T43.215A Adverse effect of selective serotonin and norepinephrine reuptake inhibitors, initial encounter; F41.9 Anxiety disorder, unspecified; F32.A Depression, unspecified; I10 Essential (primary) hypertension; E78.5 Hyperlipidemia, unspecified; G89.29 Other chronic pain; M54.50 Low back pain, unspecified; F17.210 Nicotine dependence, cigarettes, uncomplicated; F25.1 Schizoaffective disorder, depressive type; J84.9 Interstitial pulmonary disease, unspecified; R20.2 Paresthesia of skin; Z91.52 Personal history of nonsuicidal self-harm; Z71.9 Counseling, unspecified; Z79.899 Other long term (current) drug therapy; Z79.51 Long term (current) use of inhaled steroids; Z28.310 Unvaccinated for COVID-19; Z87.01 Personal history of pneumonia (recurrent); Z82.49 Family history of ischemic heart disease and other diseases of the circulatory system; Z82.3 Family history of stroke
CPT/HCPCS: 96361 ×3; 96372 ×2; 96374; 99285; 36415; 93005; 97530; 97162; 97535; 97166; 84207; 83921; 80053 ×2; 85652; 84443; 82607; 82550; 82746; 83605; 83735 ×2; 84100; 84484; 85025 ×2; 85610; 85730; 81001; 82784 ×3; 86038; 80306; 86334; 71046; 70450; G0378 ×3; J1650 ×2; 83036

== ENCOUNTER 2022-02-22 15:14 | Emergency (ER) | payer OTHER ==
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
[2022-02-22 15:44] VITALS: TEMP 98
[2022-02-22 16:50] LABS: Basophils % (A) 0 %; Eosinophils # (A) 0.1 k/uL (0-0.7); Eosinophils % (A) 1 %; HCT 40.8 % (34.0-46.0); Lymphocytes # (A) 1.1 k/uL (1.0-4.8); Lymphocytes % (A) 17 %; MCH 27.6 pg (25.0-35.0); MCHC 31.9 g/dL (31.0-37.0); MCV 86.7 fL (80.0-100.0); Mean Platelet Volume 9.1; Monocytes # (A) 0.5 k/uL (0-1.0); Monocytes % (A) 7 %; Neutrophils % (A) 74 %; Platelet Count 209 k/uL (150-450); RDW 14.9 % (11.5-15.5); WBC 6.8 k/uL (3.8-10.6)
[2022-02-22 16:57] LABS: African American GFR (CKD) >90 (>60 ml/min/1.73 sqM); Alcohol <10 mg/dL; Anion Gap 11 mmol/L; Blood Urea Nitrogen 16 mg/dL (7-17); Calcium 9.3 mg/dL (8.4-10.2); Carbon Dioxide 21 mmol/L (22-30); Chloride 106 mmol/L (98-107); Glucose 79 mg/dL (74-99); Non-African American GFR(CKD) >90 (>60 ml/min/1.73 sqM); Potassium 4.5 mmol/L (3.5-5.1); Sodium 138 mmol/L (137-145)
[2022-02-23 01:19] LABS: Appearance,Urine Cloudy (Clear); Bilirubin,Urine Negative (Negative); Color,Urine Yellow; Glucose,Urine (UA) Negative (Negative); Ketones,Urine 3+ (Negative); Protein,Urine 1+ (Negative); Specific Gravity,Urine 1.026 (1.001-1.035)
[2022-02-23 01:20] LABS: Bacteria,Urine Occasional /hpf; Blood,Urine Negative (Negative); Hyaline Casts,Urine 19 /lpf (0-2); Leukocyte Esterase,Urine Moderate (Negative); Mucus,Urine Many /hpf; Nitrite,Urine Negative (Negative); RBC,Urine 7 /hpf (0-5); Squamous Epithelial Cell,Urine 9 /hpf (0-4); WBC,Urine 8 /hpf (0-5)
[2022-02-23 01:24] LABS: Amphetamine Screen,Urine Not Detected (NotDetected); Barbiturate Screen,Urine Not Detected (NotDetected); Benzodiazepines Screen,Urine Detected (NotDetected); Cocaine Screen,Urine Not Detected (NotDetected); Methadone Screen, Urine Not Detected (NotDetected); Opiate Screen,Urine Not Detected (NotDetected); Oxycodone Screen, Urine Not Detected (NotDetected); Phencyclidine Screen,Urine Not Detected (NotDetected); Tricyclic Antidepressant,Urine Not Detected (NotDetected)
[2022-02-23 01:25] LABS: Urn Cannabinoid Scrn Not Detected (NotDetected)
[2022-02-23 09:34] VITALS: BP 136/72; PULSE 72; RESP 18
== END 2022-02-23 09:20 | disposition home or self-care (01) ==
LOC: EC 15:14
DX: R63.0 Anorexia (principal); E78.5 Hyperlipidemia, unspecified; I10 Essential (primary) hypertension; F17.200 Nicotine dependence, unspecified, uncomplicated
CPT/HCPCS: 36415; 80048; 85025; 81001; 80306; 99284; G0480; 80320

== ENCOUNTER → 2022-06-25 | Outpatient (CLI) | payer OTHER ==
--- NOTE | 2022-06-25 14:43 | US ---
EXAMINATION TYPE: US carotid duplex BILAT DATE OF EXAM: 06/25/2022 COMPARISON: NONE CLINICAL HISTORY: I65.23 CAROTID STENOSIS. TECHNIQUE: Carotid duplex ultrasound examination. Indirect Doppler criteria was utilized. FINDINGS: EXAM MEASUREMENTS: RIGHT: Peak Systolic Velocity (PSV) cm/sec ----- Right CCA: 91.9 ----- Right ICA: 80.8 ----- Right ECA: 125 ICA/CCA ratio: 0.9 RIGHT: End Diastole cm/sec ----- Right CCA: 23.7 ----- Right ICA: 21.5 ----- Right ECA: 12.4 LEFT: Peak Systolic Velocity (PSV) cm/sec ----- Left CCA: 105.1 ----- Left ICA: 88.6 ----- Left ECA: 127.0 ICA/CCA ratio: 0.8 LEFT: End Diastole cm/sec ----- Left CCA: 23.7 ----- Left ICA: 29.2 ----- Left ECA: 15.5 VERTEBRALS (direction of flow): Right Vertebral: Antegrade Left Vertebral: Antegrade Rhythm: Normal LOAN SPECIALIST NOTES: Mild plaque bilateral bifurcations. No evidence of significant stenosis Mild atherosclerotic plaque bilaterally within the bilateral bulbs. IMPRESSION: Mild atherosclerotic plaque within the bilateral carotid bulbs without evidence for hemodynamically s ignificant stenosis. Criteria for Assigning % of Stenosis / Diameter reduction (Estimation based on the indirect measurements of the internal carotid artery velocities (ICA PSV). 1. Normal (no stenosis)=ICA PSV < 125 cm/s: ratio < 2.0: ICA EDV<40 cm/s. 2. Less than 50% stenosis=ICA PSV < 125 cm/s: ratio < 2.0: ICA EDV<40 cm/s. 3. 50 to 69% stenosis=ICA PSV of 125 to 230 cm/s: ration 2.0 ? 4.0: ICA EDV 40-100 cm/s. 4. Greater than 70% stenosis to near occlusion= ICA PSV > 230 cm/s: ratio > 4.0: ICA EDV > 100 cm/s. 5. Near occlusion= ICA PSV velocities may be low or undetectable: variable ratio and ICA EDV. 6. Total occlusion=unable to detect flow.
--- NOTE | 2022-06-26 11:52 | CA ---
Transthoracic Echo Report Name: Kristine Hampton Age: 61 Gender: F : 1960 Exam Date: 06/25/2022 14:52 Exam Location: [facility] Ht (in): 61 Wt (lb): 122 Ordering Physician: Carey Benitez MD Attending/Referring Phys: Carey Benitez MD Acid Purification Equipment Operator Tish Hall RDCS Procedure CPT: Indications: R10.9 ABDOMINAL PAIN Cardiac Hx: Technical Quality: Fair Contrast 1: Total Dose (mL): Contrast 2: Total Dose (mL): MEASUREMENTS (Male / Female) Normal Values 2D ECHO LV Diastolic Diameter PLAX 3.0 cm 4.2 - 5.9 / 3.9 - 5.3 cm LV Systolic Diameter PLAX 2.2 cm IVS Diastolic Thickness 1.2 cm 0.6 - 1.0 / 0.6 - 0.9 cm LVPW Diastolic Thickness 1.4 cm 0.6 - 1.0 / 0.6 - 0.9 cm LV Relative Wall Thickness 0.9 RV Internal Dim ED PLAX 2.3 cm LA Volume 32.2 cm??? 18 - 58 / 22 - 52 cm??? M-MODE Aortic Root Diameter MM 3.2 cm LA Systolic Diameter MM 3.0 cm LA Ao Ratio MM 0.9 AV Cusp Separation MM 1.6 cm DOPPLER AV Peak Velocity 132.0 cm/s AV Peak Gradient 7.0 mmHg LVOT Peak Velocity 118.5 cm/s LVOT Peak Gradient 5.6 mmHg MV Peak Velocity 115.2 cm/s MV Peak Gradient 5.3 mmHg MV Mean Velocity 71.2 cm/s MV Mean Gradient 2.2 mmHg MV Velocity Time Integral 28.4 cm MV Area PHT 2.1 cm??? Mitral E Point Velocity 82.6 cm/s Mitral A Point Velocity 108.4 cm/s Mitral E to A Ratio 0.8 MV Deceleration Time 364.9 ms MV E' Velocity 4.5 cm/s Mitral E to MV E' Ratio 18.4 TR Peak Velocity 268.9 cm/s TR Peak Gradient 28.9 mmHg Right Ventricular Systolic Press 33.9 mmHg FINDINGS Left Ventricle Mildly increased left ventricular wall thickness. Normal left ventricular systolic function with no obvious regional wall motion abnormalities. Left ventricular ejection fraction is estimated at 55-60 %. Right Ventricle Normal right ventricular size and function. Mild pulmonary hypertension. Right Atrium Normal right atrial size. Left Atrium Normal left atrial size. Mitral Valve Moderate mitral annular calcification. Mitral valve thickened. Minimal mitral stenosis. Trace mitral regurgitation. Aortic Valve Trileaflet aortic valve. No aortic stenosis. No aortic regurgitation. Aortic valve sclerosis. Tricuspid Valve Structurally normal tricuspid valve. Mild tricuspid regurgitation. Pulmonic Valve Trace pulmonic regurgitation. Pericardium No pericardial effusion. Aorta Normal size aortic root and proximal ascending aorta. CONCLUSIONS LVH with preserved systolic function Previewed by: Dr. Hira Laughlin MD (Electronically Signed) Final Date: 26 June 2022 11:51
== END | disposition home or self-care (01) ==
LOC: RADUSWWP 13:54
PROVIDERS: ATTEND Internal Medicine
DX: Z12.2 Encounter for screening for malignant neoplasm of respiratory organs (principal); I34.0 Nonrheumatic mitral (valve) insufficiency; I65.23 Occlusion and stenosis of bilateral carotid arteries
CPT/HCPCS: 93306; 93880

== ENCOUNTER 2024-12-14 12:47 | Emergency (ER) | payer OTHER ==
[2024-12-14 12:54] VITALS: TEMP 98
[2024-12-14 13:54] LABS: Basophils # (A) 0.03 10*3/uL (0.00-0.10); Basophils % (A) 0.3 %; HCT 42.4 % (37.2-46.3); HGB 14.3 g/dL (12.0-15.0); Lymphocytes # (A) 2.06 10*3/uL (0.90-5.00); Lymphocytes % (A) 20.2 %; MCH 29.5 pg (27.0-32.0); MCHC 33.7 g/dL (32.0-37.0); MCV 87.6 fL (80.0-97.0); Mean Platelet Volume 11.4 fL (9.5-12.2); Monocytes # (A) 0.67 10*3/uL (0.20-1.00); Monocytes % (A) 6.6 %; Neutrophils # (A) 7.31 10*3/uL (1.80-7.70); Neutrophils % (A) 71.7 %; Platelet Count 313 10*3/uL (140-440); RBC 4.84 10*6/uL (4.10-5.20); RDW 14.8 % (11.5-14.5); WBC 10.19 10*3/uL (4.50-10.00)
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
[2024-12-14 14:06] LABS: ALT 13 U/L (4-34); AST 24 U/L (14-36); African American GFR (CKD) >90 (>60 ml/min/1.73 sqM); Albumin 3.8 g/dL (3.5-5.0); Alkaline Phosphatase 131 U/L (38-126); Anion Gap 10 mmol/L; Blood Urea Nitrogen 13 mg/dL (7-17); Calcium 9.4 mg/dL (8.4-10.2); Carbon Dioxide 24 mmol/L (22-30); Chloride 101 mmol/L (98-107); Glucose 93 mg/dL (74-99); Magnesium 1.9 mg/dL (1.6-2.3); Non-African American GFR(CKD) >90 (>60 ml/min/1.73 sqM); Potassium 4.6 mmol/L (3.5-5.1); Sodium 135 mmol/L (137-145); Total Bilirubin 0.6 mg/dL (0.2-1.3)
[2024-12-14 14:09] LABS: INR 0.9 (<1.2); Partial Thromboplastin Time 24.4 sec (22.0-30.0); Prothrombin Time 10.6 sec (10.0-12.5)
[2024-12-14 14:44] LABS: Influenza A Not Detected (Not Detectd); Influenza B Not Detected (Not Detectd); RSV Not Detected (Not Detectd)
--- NOTE | 2024-12-14 15:10 | XR ---
EXAMINATION TYPE: XR chest 2V DATE OF EXAM: 12/14/2024 2:34 PM COMPARISON: 02/13/2022 CLINICAL INDICATION: Female, 64 years old with history of SOB, hemoptysis, , TECHNIQUE: AP and lateral views FINDINGS: Heart borderline enlarged. Hyperinflation. Mild interstitial density is unchanged. No bill consolida tion or pleural effusion. IMPRESSION: COPD, borderline heart size, and chronic changes. No definite acute process. [facility], Workstation: [facility], 12/14/2024 3:08 PM
--- NOTE | 2024-12-14 15:20 | CT ---
EXAMINATION TYPE: CT angio chest DATE OF EXAM: 12/14/2024 COMPARISON: CT chest abdomen and pelvis dated 10/29/2021 CLINICAL INDICATION: Female, 64 years old with history of Hemoptysis, dyspnea, severe throat pain; PH H, Hemoptysis, dyspnea, severe throat pain. TECHNIQUE: CTA scan of the thorax is performed with IV Contrast, patient injected with 100 mL of Isovue 370, pul monary embolism protocol. MIP images are created and reviewed. CT DLP: 228.[address] CTDI: mGy Automated exposure control for dose reduction was used. FINDINGS: Within the focal interstitial scar within the superior segment of the right lower lobe and involving the fissure, a more masslike density has developed which measures approximately 13.5 mm. It is suspi cious for developing neoplasm and PET scan would be useful for further evaluation. There are no filling defects within the pulmonary arterial circulation to suggest pulmonary emboli. There is no pleural effusion or pneumothorax. There is no mediastinal, hilar or axillary adenopathy. As on the prior study on the left atrium of the heart is markedly dilated. Limited scanning through the upper abdomen reveals gallstones and a small hiatal hernia. Impression: 1. No evidence of pulmonary embolism. 2. developing nodule/mass in the right lung which is suspicious for neoplasm and PET scan is recommen ded for further evaluation. 3. Stable marked left atrial enlargement [facility], , 12/14/2024 3:17 PM
[2024-12-14] MEDS: SODIUM CHLORIDE 0.9% 1,000 ML IV STA (15:21)
[2024-12-14] MEDS: HYDROmorphone 0.5 MG/0.5 ML SYRINGE IVP STA (15:23)
[2024-12-14] MEDS: LIDOCAINE VISCOUS 2% 15 ML CUP PO ONE (15:24)
[2024-12-14 16:50] VITALS: BP 194/76; PULSE 55; RESP 18
== END 2024-12-14 16:58 | disposition home or self-care (01) ==
LOC: EC 12:47
DX: J04.0 Acute laryngitis (principal); D49.1 Neoplasm of unspecified behavior of respiratory system; R00.1 Bradycardia, unspecified
CPT/HCPCS: 36415; 93005; 87651; 80053; 83605; 83735; 84484; 85025; 85610; 85730; 87636; 71046; 71275; 99285; 96374; 96361; J1171; Q9967

== ENCOUNTER → 2024-12-30 | Outpatient (CLI) | payer SELFPAY ==
--- NOTE | 2025-01-01 12:58 | PE ---
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 Images are reviewed on the computer in the coronal, axial, and sagittal planes. Reconstructed rotating images are created on independent workstation and reviewed on the computer. A non-contrast CT is performed in conjunction with the PET scan. Glucose level 90 mg/dL CT DLP: 529 mGycm, Automated exposure control for dose reduction was used. COMPARISON: CT 12/14/2024, 10/21/2021, PET/CT None, MRI: None FINDINGS: Mediastinal SUV mean is 1.7.. Hepatic parenchyma SUV mean is 2.3. SKULL BASE AND NECK: Diffuse uptake throughout the larynx with thickening of the aryepiglottic folds bilaterally max SUV 2 3.4. Bilateral neck lymph nodes. Examples include: right neck max SUV 4.3, measurements difficult due to lack of IV contrast in multiple vessels.r both measure 8 mm in short axis. Left neck max SUV 4.6 measuring 9 mm in short axis. CHEST, MEDIASTINUM, AND HILAR REGION: No suspicious radiotracer activity. ABDOMEN AND PELVIS: No suspicious radiotracer activity. MUSCULOSKELETAL STRUCTURES: Left transverse process of C3 max SUV 4.8. OTHER CT: Atherosclerosis of the arterial vasculature. Large severe aortic valve consultations. Moder ate coronary artery cusp patient's premature of annular cusp patient's. Cholelithiasis. Simple appear ing right renal cyst and left renal cyst. Moderate to large stool burden throughout the colon. IMPRESSION: Findings compatible with laryngeal malignancy with bilateral FDG avid lymph nodes compatible with met astatic disease. No evidence for metastatic disease below the neck or within the abdomen or pelvis. [facility], , 01/01/2025 12:56 PM
== END | disposition home or self-care (01) ==
LOC: RADPETMAIN 15:42
PROVIDERS: ATTEND Internal Medicine
DX: R91.8 Other nonspecific abnormal finding of lung field (principal)
CPT/HCPCS: 78815; A9552

== ENCOUNTER → 2025-01-07 | Outpatient (CLI) | payer SELFPAY ==
--- NOTE | 2025-01-07 14:00 | FL ---
EXAMINATION TYPE: FL barium swallow DATE OF EXAM: 01/07/2025 10:48 AM COMPARISON: . Chest radiograph from same day. CLINICAL INDICATION:Female, 64 years old with history of R13.1 APHAGIA; PHH, TECHNIQUE: The procedure was explained and patient history elicited. All patient questions were ans wered prior to start of procedure. Multiple spot fluoroscopic images of the esophagus were obtained a fter the oral ingestion of effervescent crystals and liquid barium as the contrast agent. DAP: NOT REPORTED [id number] FINDINGS: The esophagus demonstrates normal primary and secondary peristalsis. The esophageal mucosa is smooth without evidence of focal stricture, ulceration, or abnormal outpouching. No gastroesophageal reflu x disease was identified Patient did aspirate with cough reflux during the exam. IMPRESSION: 1. No significant esophageal dysmotility free flow contrast into the stomach. 2. Patient didn't aspirate with cough reflex. [facility], , 01/07/2025 1:58 PM
== END | disposition home or self-care (01) ==
LOC: RADFLMAIN 10:00
PROVIDERS: ATTEND Otolaryngology
DX: R13.0 Aphagia (principal)
CPT/HCPCS: 74220